=== PATIENT | female | born 1970 | race Two or more races ===

== ENCOUNTER → 2020-01-23 09:30 | Outpatient (BNVA) | payer MEDICARE, MEDICAID, SELFPAY | PROVIDERS: PCP Physician Assistant; Referring Provider Physician Assistant; Visit Provider Anesthesiology | DX: M51.36 Other intervertebral disc degeneration, lumbar region (principal); M47.816 Spondylosis without myelopathy or radiculopathy, lumbar region | CPT/HCPCS: 99213 ==

== ENCOUNTER → 2020-05-14 08:12 | Outpatient (BNVA) | payer MEDICARE, MEDICAID, SELFPAY | PROVIDERS: PCP Physician Assistant; Visit Provider Anesthesiology | DX: M51.36 Other intervertebral disc degeneration, lumbar region (principal); M47.816 Spondylosis without myelopathy or radiculopathy, lumbar region; M16.0 Bilateral primary osteoarthritis of hip; M46.1 Sacroiliitis, not elsewhere classified; G89.4 Chronic pain syndrome | CPT/HCPCS: 99212 ==

== ENCOUNTER 2020-06-05 06:03 | Outpatient (REF) | payer MEDICARE, MEDICAID, SELFPAY ==
--- NOTE | ~2020-06-05 | FL_ITS ---
EXAMINATION: XR FLUOROSCOPY WITH IMAGES CLINICAL INFORMATION: Spondylosis with myelopathy/radiculopathy COMPARISON: None. TECHNIQUE: Fluoroscopy performed by Nora Rodriguez NP. Fluoroscopy time: 0.5 minutes DAP: 2.35 Gycm2 Images: 2 FINDINGS: There are 2 images obtained of lumbar spine revealing needle positioned inferior right L3 and L4 pedicles opacifying epidural space and the right neural foramina. Visualized bones are unremarkable. The soft tissues are normal. FL/FL guidance in treatment room IMPRESSION: Fluoroscopy guidance was provided to referring physician for lateral left epidural steroid injection at L3 and L4 vertebra.
== END 2020-06-05 06:04 | disposition home or self-care (01) ==
LOC: HO.RADIR 06:03
PROVIDERS: Visit Provider Anesthesiology
DX: M47.816 Spondylosis without myelopathy or radiculopathy, lumbar region (principal); M51.36 Other intervertebral disc degeneration, lumbar region; G89.4 Chronic pain syndrome; M16.0 Bilateral primary osteoarthritis of hip; M46.1 Sacroiliitis, not elsewhere classified
CPT/HCPCS: 64483; 64484; J3300; Q9967

== ENCOUNTER → 2020-06-11 09:18 | Outpatient (BNVA) | payer MEDICARE, MEDICAID, SELFPAY | PROVIDERS: PCP Physician Assistant; Visit Provider Anesthesiology | DX: M51.36 Other intervertebral disc degeneration, lumbar region (principal); M47.816 Spondylosis without myelopathy or radiculopathy, lumbar region; G89.4 Chronic pain syndrome; M16.0 Bilateral primary osteoarthritis of hip; M46.1 Sacroiliitis, not elsewhere classified | CPT/HCPCS: 99212 ==

== ENCOUNTER → 2020-07-09 10:02 | Outpatient (BNVA) | payer MEDICARE, MEDICAID, SELFPAY | PROVIDERS: PCP Physician Assistant; Visit Provider Anesthesiology | DX: M47.816 Spondylosis without myelopathy or radiculopathy, lumbar region (principal); M51.36 Other intervertebral disc degeneration, lumbar region; M16.0 Bilateral primary osteoarthritis of hip; M46.1 Sacroiliitis, not elsewhere classified; G89.4 Chronic pain syndrome | CPT/HCPCS: Q3014 ==

== ENCOUNTER 2020-11-06 06:08 | Outpatient (REF) | payer MEDICARE, MEDICAID, SELFPAY ==
--- NOTE | ~2020-11-06 | FL_ITS ---
EXAMINATION: XR FLUOROSCOPY WITH IMAGES CLINICAL INFORMATION: M47.816 - Spondylosis without myelopathy or radiculopathy COMPARISON: MRI lumbar spine 04/23/2019 TECHNIQUE: Fluoroscopy performed by Nora Rodriguez NP. Fluoroscopy time: 0.5 minutes DAP: 6.23 Gycm2 Images: 5 FINDINGS: There are spinal needles overlying the outer left L3 and L4 neural foramen. There is contrast seen in the respective nerve sheaths. Some early transforaminal epidural extension is suggested. No visible vascular communication. FL/FL guidance in treatment room IMPRESSION: Fluoroscopy for pain management procedures.
[2020-11-10 12:01] LABS: Levetiracetam Keppra 7.4 mcg/mL (12.0-46.0)
== END 2020-11-06 06:09 | disposition home or self-care (01) ==
LOC: HO.RADIR 06:08
PROVIDERS: Psychiatry & Neurology Neurology; Visit Provider Anesthesiology
DX: R56.9 Unspecified convulsions (principal); M51.36 Other intervertebral disc degeneration, lumbar region; M47.816 Spondylosis without myelopathy or radiculopathy, lumbar region; G89.4 Chronic pain syndrome; M16.0 Bilateral primary osteoarthritis of hip; M46.1 Sacroiliitis, not elsewhere classified; Z79.899 Other long term (current) drug therapy
CPT/HCPCS: 36415; 64483; 64484; 80177; J3300; Q9967

== ENCOUNTER → 2020-12-05 08:38 | Outpatient (BNVA) | payer MEDICARE, MEDICAID, SELFPAY | PROVIDERS: PCP Physician Assistant; Visit Provider Anesthesiology | DX: M51.36 Other intervertebral disc degeneration, lumbar region (principal); M47.816 Spondylosis without myelopathy or radiculopathy, lumbar region; M46.1 Sacroiliitis, not elsewhere classified; M16.0 Bilateral primary osteoarthritis of hip; G89.4 Chronic pain syndrome; Z79.899 Other long term (current) drug therapy | CPT/HCPCS: 99212 ==

== ENCOUNTER 2021-04-23 06:41 | Outpatient (REF) | payer MEDICARE, MEDICAID, SELFPAY ==
--- NOTE | ~2021-04-23 | FL_ITS ---
EXAMINATION: XR FLUOROSCOPY WITH IMAGES CLINICAL INFORMATION: M51.36 - Other intervertebral disc degeneration, lumbar COMPARISON: Fluoroscopic spot views 11/06/2020 TECHNIQUE: Fluoroscopy performed by Dr. Lester James. Fluoroscopy time: 0.5 minutes DAP: 4.88 Gycm2 Images: 2 FINDINGS: There are spinal needles overlying the outer left neural foramen at L3 and L4. There is contrast seen in the respective nerve sheaths. Some early transforaminal epidural extension is suggested. No visible vascular communication. FL/FL guidance in treatment room IMPRESSION: Fluoroscopy for pain management procedures.
== END 2021-04-23 06:42 | disposition home or self-care (01) ==
LOC: HO.RADIR 06:41
PROVIDERS: Visit Provider Anesthesiology
DX: M51.36 Other intervertebral disc degeneration, lumbar region (principal); M47.816 Spondylosis without myelopathy or radiculopathy, lumbar region; G89.4 Chronic pain syndrome; M16.0 Bilateral primary osteoarthritis of hip; M46.1 Sacroiliitis, not elsewhere classified
CPT/HCPCS: 64483; 64484; J3300; Q9967

== ENCOUNTER → 2021-05-22 09:33 | Outpatient (BNVA) | payer MEDICARE, MEDICAID, SELFPAY | PROVIDERS: PCP Physician Assistant; Visit Provider Anesthesiology | DX: Z13.89 Encounter for screening for other disorder (principal) | CPT/HCPCS: Q3014 ==

== ENCOUNTER 2021-10-29 06:04 | Outpatient (REF) | payer MEDICARE, SELFPAY ==
--- NOTE | ~2021-10-29 | FL_ITS ---
EXAMINATION: XR FLUOROSCOPY WITH IMAGES CLINICAL INFORMATION: Left-sided lumbar injection. Spondylosis. COMPARISON: 04/23/2021 TECHNIQUE: Fluoroscopy performed by Dr. Lester James. Fluoroscopy time: 0.3 minutes. Cumulative Dose: 9.33 mGy. DAP: 2.54 Gy-cm2. Images: 2. FINDINGS: A radiopaque needle projects over the left L3 and L4 vertebral bodies laterally, possibly foraminal. Contrast extends along the neural foramen. FL/FL guidance in treatment room IMPRESSION: Fluoroscopic guidance for neuroforaminal injections at L3 and L4 on the left. Please refer to procedural report for further information.
== END 2021-10-29 06:05 | disposition home or self-care (01) ==
LOC: HO.RADIR 06:04
PROVIDERS: Visit Provider Anesthesiology
DX: M47.816 Spondylosis without myelopathy or radiculopathy, lumbar region (principal); M51.36 Other intervertebral disc degeneration, lumbar region; G89.4 Chronic pain syndrome; M16.0 Bilateral primary osteoarthritis of hip; M46.1 Sacroiliitis, not elsewhere classified; M51.16 Intervertebral disc disorders with radiculopathy, lumbar region
CPT/HCPCS: 64483; 64484; J3300

== ENCOUNTER → 2021-12-11 09:59 | Outpatient (BNVA) | payer MEDICARE, MEDICAID, SELFPAY | PROVIDERS: PCP Physician Assistant; Visit Provider Anesthesiology | DX: M51.36 Other intervertebral disc degeneration, lumbar region (principal); M47.816 Spondylosis without myelopathy or radiculopathy, lumbar region; M16.0 Bilateral primary osteoarthritis of hip; M46.1 Sacroiliitis, not elsewhere classified; G89.4 Chronic pain syndrome | CPT/HCPCS: 99212 ==

== ENCOUNTER 2022-02-04 05:52 | Outpatient (REF) | payer MEDICARE, MEDICAID, SELFPAY ==
--- NOTE | ~2022-02-04 | FL_ITS ---
EXAMINATION: XR FLUOROSCOPY WITH IMAGES CLINICAL INFORMATION: M51.16 - Intervertebral disc disorders with radiculopathy, lumbar region COMPARISON: MR lumbar spine 04/23/2019 TECHNIQUE: Fluoroscopy supervised by Dr. Lester James. Fluoroscopy time: 0.5 minutes. Cumulative Dose: 6.61 mGy. DAP: 1.80 Gy-cm2. Images: 2. FINDINGS: There is a spinal needle overlying the outer left L3 neural foramen. There is contrast seen in the respective nerve sheath along with transforaminal epidural extension. No visible vascular communication. FL/FL guidance in treatment room IMPRESSION: Fluoroscopy for pain management procedures.
== END 2022-02-04 05:53 | disposition home or self-care (01) ==
LOC: CF 05:52
PROVIDERS: Visit Provider Anesthesiology
DX: M51.36 Other intervertebral disc degeneration, lumbar region (principal); M47.26 Other spondylosis with radiculopathy, lumbar region; M51.16 Intervertebral disc disorders with radiculopathy, lumbar region; M16.0 Bilateral primary osteoarthritis of hip; M46.1 Sacroiliitis, not elsewhere classified; G89.4 Chronic pain syndrome
CPT/HCPCS: 64493; 64494; J3300; Q9965

== ENCOUNTER → 2022-03-10 09:24 | Outpatient (BNVA) | payer MEDICARE, MEDICAID, SELFPAY | PROVIDERS: PCP Physician Assistant; Visit Provider Anesthesiology | DX: M51.36 Other intervertebral disc degeneration, lumbar region (principal); M47.816 Spondylosis without myelopathy or radiculopathy, lumbar region; M16.0 Bilateral primary osteoarthritis of hip; M46.1 Sacroiliitis, not elsewhere classified; G89.4 Chronic pain syndrome | CPT/HCPCS: 99212 ==

== ENCOUNTER → 2022-08-04 10:18 | Outpatient (BNVA) | payer MEDICARE, MEDICAID, SELFPAY | PROVIDERS: PCP Physician Assistant; Visit Provider Anesthesiology | DX: M51.36 Other intervertebral disc degeneration, lumbar region (principal); M47.816 Spondylosis without myelopathy or radiculopathy, lumbar region; M16.0 Bilateral primary osteoarthritis of hip; M46.1 Sacroiliitis, not elsewhere classified; M51.16 Intervertebral disc disorders with radiculopathy, lumbar region; G89.4 Chronic pain syndrome | CPT/HCPCS: 99212 ==

== ENCOUNTER 2022-08-26 06:11 | Outpatient (REF) | payer MEDICARE, MEDICAID, SELFPAY ==
--- NOTE | ~2022-08-26 | FL_ITS ---
EXAMINATION: XR FLUOROSCOPY WITH IMAGES CLINICAL INFORMATION: Intervertebral disc disorders with radiculopathy COMPARISON: None available. TECHNIQUE: Fluoroscopy Supervised By: Dr. Chidi Manning. Fluoroscopy Time: 0.3 minutes. Cumulative Dose: 10.5 mGy. DAP: 2.86 Gycm2. Images: 2. FINDINGS: (2022 (1) Position inferior to left L3-L4 pedicle and contrast opacifying the epidural space at these disc levels. Visualized bones and discs are unremarkable. FL/FL guidance in treatment room IMPRESSION: Fluoroscopy was provided to referring physician for pain management.
== END 2022-08-26 06:12 | disposition home or self-care (01) ==
LOC: CF 06:11
PROVIDERS: Visit Provider Anesthesiology
DX: G89.4 Chronic pain syndrome (principal); M51.16 Intervertebral disc disorders with radiculopathy, lumbar region; M51.36 Other intervertebral disc degeneration, lumbar region; M47.816 Spondylosis without myelopathy or radiculopathy, lumbar region; M16.0 Bilateral primary osteoarthritis of hip; M46.1 Sacroiliitis, not elsewhere classified
CPT/HCPCS: 64483; 64484; J3301

== ENCOUNTER → 2022-09-22 12:44 | Outpatient (BNVA) | payer MEDICARE, MEDICAID, SELFPAY | PROVIDERS: PCP Physician Assistant; Visit Provider Anesthesiology | DX: M51.36 Other intervertebral disc degeneration, lumbar region (principal); M47.816 Spondylosis without myelopathy or radiculopathy, lumbar region; M16.0 Bilateral primary osteoarthritis of hip; M51.16 Intervertebral disc disorders with radiculopathy, lumbar region; M46.1 Sacroiliitis, not elsewhere classified; G89.4 Chronic pain syndrome | CPT/HCPCS: 99212 ==

== ENCOUNTER 2023-01-13 06:02 | Outpatient (REF) | payer MEDICARE, MEDICAID, SELFPAY ==
--- NOTE | ~2023-01-13 | FL_ITS ---
EXAMINATION: XR FLUOROSCOPY WITH IMAGES CLINICAL INFORMATION: Intervertebral disc disorders with radiculopathy, lumbar region. COMPARISON: None available. TECHNIQUE: Fluoroscopy Supervised By: Dr. Lester James. Fluoroscopy Time: 0.3 minutes. Cumulative Dose: 7.42 mGy. DAP: 0.128 Gycm2. Images: 2. FINDINGS: Images demonstrate needle placement and contrast injection adjacent to the left L3 and L4 vertebrae FL/FL guidance in treatment room IMPRESSION: Fluoroscopy guidance for pain management procedure
== END 2023-01-13 06:03 | disposition home or self-care (01) ==
LOC: CF 06:02
PROVIDERS: Visit Provider Anesthesiology
DX: M51.16 Intervertebral disc disorders with radiculopathy, lumbar region (principal); M51.36 Other intervertebral disc degeneration, lumbar region; M47.816 Spondylosis without myelopathy or radiculopathy, lumbar region; M16.0 Bilateral primary osteoarthritis of hip; M46 Other inflammatory spondylopathies
CPT/HCPCS: 64483; 64484; J3301; Q9967

== ENCOUNTER 2023-01-13 08:05 | Outpatient (AMB) | payer MEDICARE, MEDICAID, SELFPAY ==
[2023-01-13 08:11] VITALS: BP 122/72; PULSE 79; RESP 16; O2SAT 99; BMI 23.6
--- NOTE | 2023-01-13 08:11 | MHC.OFFVIS ---
Intake Vital Signs 01/13/23 08:11 01/13/23 08:53 Height 5 ft 2 in 5 ft 2 in Weight 129 lb 129 lb BMI 23.6 23.6 BP 122/72 114/62 Blood Pressure Location Lt brachial Rt brachial Position Sitting Sitting Respiration 16 16 Pulse 79 61 Pulse Source Pulse Oximeter Pulse Oximeter Pulse Oximetry (%) 99 99 Oxygen Delivery Method Room Air Room Air Comment Pre-Op post-op Intake Visit Reasons: L L3-L4, L4-L5 TFESI/LOCAL Allergies aspirin Allergy (Unknown, Verified 01/13/23 08:53) upset stomach Alupent Allergy (Unknown, Uncoded 09/22/22 13:08) vomiting bees Allergy (Unknown, Uncoded 09/22/22 13:08) hives strawberries Allergy (Unknown, Uncoded 09/22/22 13:08) hives [facility] Medical History (Updated 01/13/23 @ 10:50 by Lester James MD) Sacroiliitis Osteoarthritis, hip, bilateral Chronic pain syndrome Spondylosis of lumbar region without myelopathy or radiculopathy Disc degeneration, lumbar Physical Exam Vital Signs: Last Vital Signs Pulse 61 01/13/23 08:53 Resp 16 01/13/23 08:53 BP 114/62 01/13/23 08:53 Pulse Ox 99 01/13/23 08:53 Oxygen Delivery Method Room Air 01/13/23 08:53 BMI result Body Mass Index 23.6 Assessment & Plan Assessment & Plan (1) Disc degeneration, lumbar: Code(s): M51.36 - Other intervertebral disc degeneration, lumbar region (2) Spondylosis of lumbar region without myelopathy or radiculopathy: Code(s): M47.816 - Spondylosis without myelopathy or radiculopathy, lumbar region (3) Chronic pain syndrome: Code(s): G89.4 - Chronic pain syndrome (4) Osteoarthritis, hip, bilateral: Code(s): M16.0 - Bilateral primary osteoarthritis of hip (5) Sacroiliitis: Code(s): M46.1 - Sacroiliitis, not elsewhere classified (6) Displacement of lumbar intervertebral disc with radiculopathy: Code(s): M51.16 - Intervertebral disc disorders with radiculopathy, lumbar region Plan: The patient is in my office today and reports the nature of her pain has changed. She reports now that she feels bilateral pain with radiation down the left as well as down the right LE. She reports intermitted weakness of the RLE. She is asking if we can repeat the MRI of the lumbar spine. She had an MRI long time ago. She had small disc protrusion in the past at L4- L5 and it might be that the protrusion now increased in size. I will schedule her for the lumbar spine MRI. (7) Radiculopathy, lumbar region: Code(s): M54.16 - Radiculopathy, lumbar region Plan Transforaminal epidural steroid injection L3-L4 L4-5 on the left. THE PATIENT CAME TO THE OPERATING ROOM AFTER OBTAINING INFORMED CONSENT. THE RISKS OF THE PROCEDURE WERE DELINEATED THE RISK OF BLEEDING INFECTION PERIPHERAL NERVE DAMAGE EPIDURAL HEMATOMA EPIDURAL ABSCESS AND OTHER UNSPECIFIED RISKS. THE PATIENT WAS POSITIONED PRONE ON THE OPERATING TABLE [employer] MONITORS WERE APPLIED, PATIENT WAS NOT SEDATED. TIME-OUT WAS OBTAINED DELINEATING CORRECT SIDE AND SITE OF THE PROCEDURE, PATIENT NAME AND DATE OF , NEED OF THE ANTIBIOTIC, RISK OF FIRE. The PATIENT PARTICIPATED IN THE TIME OUT PROCEDURE. LUMBAR AREA OF THE PATIENT WAS PREPPED WITH CHLORAPREP AND DRAPED WITH STERILE DRAPES, STERILELY DRAPED C-ARM WAS BROUGHT OVER THE OPERATING FIELD AND SQ PICTURE OF L3 VERTEBRA WAS DELINEATED ON THE SCREEN. C-ARM WAS TILTED 20? TO THE left SIDE AND PICTURE OF THE left PEDICLE L3 VERTEBRA WAS OBTAINED ON THE SCREEN. 3 MM BELOW THE LOWEST POINT OF THE PEDICLE PROJECTION TO THE SKIN WAS CHOSEN A STARTING POINT OF THE INJECTION. 22 GAUGE 5 IN SPINAL NEEDLE WAS INSERTED THROUGH THE SKIN AND STARTED TO ADVANCE TO THE FORAMINA IN ANTERIOR POSTERIOR, OBLIQUE AND LATERAL VIEWS IN TUNNEL VISION FASHION. WHEN ON LATERAL VIEW THE NEEDLE ENTERED THE MOST POSTERIOR AND SUPERIOR PORTION OF THE FORAMINA INJECTION OF THE CONTRAST PERFORMED DELINEATING ANTERIOR EPIDURAL SPREAD OF THE CONTRAST. AFTER THAT TREATMENT SOLUTION CONTAINING 5 ML OF PRESERVATIVE-FREE LIDOCAINE 1% MIXED WITH KENALOG 40 MG WAS INJECTED INTO THE NEEDLE. UPON COMPLETION OF THE INJECTION THE NEEDLE WAS REMOVED AND STERILE DRESSING WAS APPLIED. THERE INJECTION WAS REPEATED AT THE LEVEL L4-L5 ON THE LEFT IN THE SAME VERY FASHION ABOVE. PATIENT TOLERATED PROCEDURE WELL SHE WAS AWAKEN TAKEN OUTSIDE OF THE OPERATING ROOM TO PACU WHERE SHE RECOVERED UNEVENTFULLY. SHE WENT HOME WITHOUT IMMEDIATE COMPLICATIONS. Orders: Orders FL guidance in treatment room Today M51.16 - Intervertebral disc disorders with radiculopathy, lumbar region Nelli Moran, [employer] [place], TECHNICAL ADMINISTRATOR MR lumbar spine wo con Today M51.36 - Other intervertebral disc degeneration, lumbar region Lester James MD Coding Level of Care Code Procedure Only Diagnoses Disc degeneration, lumbar M51.36 Spondylosis of lumbar region without myelopathy or radiculopathy M47.816 Chronic pain syndrome G89.4 Osteoarthritis, hip, bilateral M16.0 Sacroiliitis M46.1 Displacement of lumbar intervertebral disc with radiculopathy M51.16 Radiculopathy, lumbar region M54.16
[2023-01-13 08:53] VITALS: BP 114/62; PULSE 61; RESP 16; O2SAT 99; BMI 23.6
== END 2023-01-13 09:03 | disposition home or self-care (01) ==
LOC: HO.PMCPRC 08:05
PROVIDERS: PCP Physician Assistant; Visit Provider Anesthesiology
DX: M54.16 Radiculopathy, lumbar region (principal); M51.36 Other intervertebral disc degeneration, lumbar region; M47.816 Spondylosis without myelopathy or radiculopathy, lumbar region; M16.0 Bilateral primary osteoarthritis of hip; G89.4 Chronic pain syndrome; M46.1 Sacroiliitis, not elsewhere classified; M51.16 Intervertebral disc disorders with radiculopathy, lumbar region
CPT/HCPCS: 64483; 64484

== ENCOUNTER 2023-01-29 18:59 | Outpatient (REF) | payer MEDICARE, MEDICAID, SELFPAY ==
--- NOTE | ~2023-01-29 | MR_ITS ---
EXAMINATION: MR LUMBAR SPINE WITHOUT CONTRAST CLINICAL INFORMATION: Low back pain COMPARISON: MRI lumbar spine 04/23/2019 TECHNIQUE: MRI of the lumbar spine was obtained using routine sequences without contrast. FINDINGS: Normal lumbar lordosis is preserved. Stable trace retrolisthesis at L5-S1 and trace anterolisthesis at L4-L5. Vertebral body heights are maintained. There is no suspicious osseous lesion. Multilevel disc desiccation with minimal L5-S1 disc height loss. Level by level detail as follows: L1-L2: No spinal canal or neural foraminal stenosis. L2-L3: Shallow annular disc bulge with decreased size of left foraminal/lateral disc protrusion and redemonstrated associated annular fissure. Mild bilateral facet arthrosis. No spinal canal or right neural foraminal stenosis. Decreased mild left neural foraminal stenosis without residual mass effect along the exiting/extraforaminal left L2 nerve root. L3-L4: Shallow annular disc bulge with decreased size of left foraminal/lateral disc protrusion and increased conspicuity of associated annular fissure in this region. Mild bilateral facet arthrosis. No spinal canal or right neural foraminal stenosis. Decreased mild left neural foraminal stenosis. L4-L5: Posterior disc uncovering/pseudodisc bulge with advanced bilateral facet arthrosis. No spinal canal stenosis. Redemonstrated abutment of the traversing L5 nerve roots in the subarticular zones. Unchanged mild bilateral neural foraminal encroachment. L5-S1: Annular disc bulge with redemonstrated paracentral disc protrusion with redemonstrated annular fissure. Bilateral facet arthrosis. No spinal canal stenosis. Stable mild bilateral neural foraminal stenosis. The conus medullaris terminates at the level of L1. The distal spinal cord is normal in appearance. . No epidural fluid collection, hematoma, or mass. No significant abnormalities of the paraspinal musculature. 2.2 cm left adnexal cystic lesion. Findings are overwhelmingly likely to represent a benign functional cyst and no follow-up imaging recommended. The abdominal aorta is of normal contour and caliber. MR/MR lumbar spine wo con IMPRESSION: Interval decrease in size of left foraminal/lateral disc protrusions at L2-L3 and L3-L4 with decreased left neural foraminal stenosis at the levels. Otherwise stable multilevel lumbar spondylosis without high-grade spinal canal stenosis. Mild multilevel neural foraminal narrowing. Several annular fissures are redemonstrated. Stable slight anterolisthesis at L4-L5 related to advanced bilateral facet arthropathy.
== END 2023-01-29 19:00 | disposition home or self-care (01) ==
LOC: HO.MRI 18:59
PROVIDERS: PCP Family Medicine; Visit Provider Anesthesiology
DX: M51.36 Other intervertebral disc degeneration, lumbar region (principal)
CPT/HCPCS: 72148

== ENCOUNTER 2023-02-16 10:08 | Outpatient (AMB) | payer MEDICARE, MEDICAID, SELFPAY ==
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
[2023-02-16 10:18] VITALS: BP 134/70; PULSE 81; RESP 16; O2SAT 98; BMI 25.1
== END 2023-02-16 10:34 | disposition home or self-care (01) ==
PROVIDERS: PCP Physician Assistant; Visit Provider Anesthesiology
DX: M51.36 Other intervertebral disc degeneration, lumbar region (principal); M47.816 Spondylosis without myelopathy or radiculopathy, lumbar region; G89.4 Chronic pain syndrome; M16.0 Bilateral primary osteoarthritis of hip; M46.1 Sacroiliitis, not elsewhere classified; M51.16 Intervertebral disc disorders with radiculopathy, lumbar region; M54.16 Radiculopathy, lumbar region
CPT/HCPCS: 99213

== ENCOUNTER → 2023-02-16 10:08 | Outpatient (BNVA) | payer MEDICARE, MEDICAID, SELFPAY | PROVIDERS: PCP Physician Assistant; Visit Provider Anesthesiology | DX: M51.36 Other intervertebral disc degeneration, lumbar region (principal); M47.816 Spondylosis without myelopathy or radiculopathy, lumbar region; M16.0 Bilateral primary osteoarthritis of hip; M46.1 Sacroiliitis, not elsewhere classified; M51.16 Intervertebral disc disorders with radiculopathy, lumbar region; M54.16 Radiculopathy, lumbar region; G89.4 Chronic pain syndrome | CPT/HCPCS: 99212 ==

== ENCOUNTER 2023-06-30 06:14 | Outpatient (REF) | payer MEDICARE, MEDICAID, SELFPAY ==
--- NOTE | ~2023-06-30 | FL_ITS ---
EXAMINATION: XR FLUOROSCOPY WITH IMAGES CLINICAL INFORMATION: Lumbar radiculopathy COMPARISON: None available. TECHNIQUE: Fluoroscopy Supervised By: Dr. Lester James. Fluoroscopy Time: 0.4 minutes. Cumulative Dose: 9.8 mGy. DAP: 0.171 Gycm2. Images: 2. FINDINGS: Fluoroscopic imaging guidance was utilized for procedure. 2 images were saved and are available for review. These images show needle position of the left L3-L4 and L4-L5 levels with contrast injection. FL/FL guidance in treatment room IMPRESSION: Fluoroscopic imaging procedure. For further detail regarding procedure and findings please refer to the procedure report.
== END 2023-06-30 06:15 | disposition home or self-care (01) ==
LOC: CF 06:14
PROVIDERS: Visit Provider Anesthesiology
DX: M51.36 Other intervertebral disc degeneration, lumbar region (principal); M47.26 Other spondylosis with radiculopathy, lumbar region; G89.4 Chronic pain syndrome; M16.0 Bilateral primary osteoarthritis of hip; M46.1 Sacroiliitis, not elsewhere classified; M51.16 Intervertebral disc disorders with radiculopathy, lumbar region
CPT/HCPCS: 64483; 64484; J3301; Q9967

== ENCOUNTER 2023-06-30 12:54 | Outpatient (AMB) | payer MEDICARE, MEDICAID, SELFPAY ==
--- NOTE | 2023-06-30 13:20 | A.OFFVIS_ITS ---
Intake Vital Signs 06/30/23 13:44 06/30/23 13:44 Height 5 ft 2 in Weight 137 lb BMI 25.1 BP 128/82 122/80 Blood Pressure Location Lt brachial Lt brachial Position Sitting Sitting Respiration 14 16 Pulse 88 88 Pulse Source Pulse Oximeter Pulse Oximeter Pulse Oximetry (%) 99 96 Oxygen Delivery Method Room Air Room Air Comment Pre-Op Post-Op Intake Visit Reasons: LEFT L3, L4 AND L4, L5 TFESI Allergies aspirin Allergy (Unknown, Verified 02/16/23 10:19) upset stomach Alupent Allergy (Unknown, Uncoded 09/22/22 13:08) vomiting bees Allergy (Unknown, Uncoded 09/22/22 13:08) hives strawberries Allergy (Unknown, Uncoded 09/22/22 13:08) hives [facility], [facility] Medical History (Updated 01/13/23 @ 10:50 by Lester James MD) Sacroiliitis Osteoarthritis, hip, bilateral Chronic pain syndrome Spondylosis of lumbar region without myelopathy or radiculopathy Disc degeneration, lumbar Physical Exam Vital Signs: Last Vital Signs Pulse 88 06/30/23 13:44 Resp 16 06/30/23 13:44 BP 122/80 06/30/23 13:44 Pulse Ox 96 06/30/23 13:44 Oxygen Delivery Method Room Air 06/30/23 13:44 BMI result Body Mass Index 25.1 Assessment & Plan Assessment & Plan (1) Disc degeneration, lumbar: Code(s): M51.36 - Other intervertebral disc degeneration, lumbar region (2) Spondylosis of lumbar region without myelopathy or radiculopathy: Code(s): M47.816 - Spondylosis without myelopathy or radiculopathy, lumbar region (3) Chronic pain syndrome: Code(s): G89.4 - Chronic pain syndrome (4) Osteoarthritis, hip, bilateral: Code(s): M16.0 - Bilateral primary osteoarthritis of hip (5) Sacroiliitis: Code(s): M46.1 - Sacroiliitis, not elsewhere classified (6) Displacement of lumbar intervertebral disc with radiculopathy: Code(s): M51.16 - Intervertebral disc disorders with radiculopathy, lumbar region (7) Radiculopathy, lumbar region: Code(s): M54.16 - Radiculopathy, lumbar region Plan Transforaminal epidural steroid injection L3-L4 L4-5 on the left. THE PATIENT CAME TO THE OPERATING ROOM AFTER OBTAINING INFORMED CONSENT. THE RISKS OF THE PROCEDURE WERE DELINEATED THE RISK OF BLEEDING INFECTION PERIPHERAL NERVE DAMAGE EPIDURAL HEMATOMA EPIDURAL ABSCESS AND OTHER UNSPECIFIED RISKS. THE PATIENT WAS POSITIONED PRONE ON THE OPERATING TABLE [employer] MONITORS WERE APPLIED, PATIENT WAS NOT SEDATED. TIME-OUT WAS OBTAINED DELINEATING CORRECT SIDE AND SITE OF THE PROCEDURE, PATIENT NAME AND DATE OF , NEED OF THE ANTIBIOTIC, RISK OF FIRE. The PATIENT PARTICIPATED IN THE TIME OUT PROCEDURE. LUMBAR AREA OF THE PATIENT WAS PREPPED WITH CHLORAPREP AND DRAPED WITH STERILE DRAPES, STERILELY DRAPED C-ARM WAS BROUGHT OVER THE OPERATING FIELD AND SQ PICTURE OF L3 VERTEBRA WAS DELINEATED ON THE SCREEN. C-ARM WAS TILTED 20? TO THE left SIDE AND PICTURE OF THE left PEDICLE L3 VERTEBRA WAS OBTAINED ON THE SCREEN. 3 MM BELOW THE LOWEST POINT OF THE PEDICLE PROJECTION TO THE SKIN WAS CHOSEN A STARTING POINT OF THE INJECTION. 22 GAUGE 5 IN SPINAL NEEDLE WAS INSERTED THROUGH THE SKIN AND STARTED TO ADVANCE TO THE FORAMINA IN ANTERIOR POSTERIOR, OBLIQUE AND LATERAL VIEWS IN TUNNEL VISION FASHION. WHEN ON LATERAL VIEW THE NEEDLE ENTERED THE MOST POSTERIOR AND SUPERIOR PORTION OF THE FORAMINA INJECTION OF THE CONTRAST PERFORMED DELINEATING ANTERIOR EPIDURAL SPREAD OF THE CONTRAST. AFTER THAT TREATMENT SOLUTION CONTAINING 5 ML OF PRESERVATIVE-FREE LIDOCAINE 1% MIXED WITH KENALOG 40 MG WAS INJECTED INTO THE NEEDLE. UPON COMPLETION OF THE INJECTION THE NEEDLE WAS REMOVED AND STERILE DRESSING WAS APPLIED. THERE INJECTION WAS REPEATED AT THE LEVEL L4-L5 ON THE LEFT IN THE SAME VERY FASHION ABOVE. PATIENT TOLERATED PROCEDURE WELL SHE WAS AWAKEN TAKEN OUTSIDE OF THE OPERATING ROOM TO PACU WHERE SHE RECOVERED UNEVENTFULLY. SHE WENT HOME WITHOUT IMMEDIATE COMPLICATIONS. Orders: Orders FL guidance in treatment room Today M54.16 - Radiculopathy, lumbar region Coding Level of Care Code Procedure Only Diagnoses Disc degeneration, lumbar M51.36 Spondylosis of lumbar region without myelopathy or radiculopathy M47.816 Chronic pain syndrome G89.4 Osteoarthritis, hip, bilateral M16.0 Sacroiliitis M46.1 Displacement of lumbar intervertebral disc with radiculopathy M51.16 Radiculopathy, lumbar region M54.16
[2023-06-30 13:44] VITALS: BP 122/80; BP 128/82; PULSE 88; RESP 14; RESP 16; O2SAT 96; O2SAT 99; BMI 25.1
== END 2023-06-30 13:49 | disposition home or self-care (01) ==
LOC: HO.PMCPRC 12:54
PROVIDERS: PCP Physician Assistant; Visit Provider Anesthesiology
DX: M54.16 Radiculopathy, lumbar region (principal)
CPT/HCPCS: 64483; 64484

== ENCOUNTER 2023-08-05 12:48 | Outpatient (AMB) | payer MEDICARE, MEDICAID, SELFPAY ==
[2023-08-05 13:13] VITALS: BP 112/66; PULSE 92; RESP 16; O2SAT 95; BMI 26.4
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
== END 2023-08-05 14:04 | disposition home or self-care (01) ==
PROVIDERS: PCP Physician Assistant; Visit Provider Anesthesiology
DX: M51.36 Other intervertebral disc degeneration, lumbar region (principal); M47.816 Spondylosis without myelopathy or radiculopathy, lumbar region; G89.4 Chronic pain syndrome; M16.0 Bilateral primary osteoarthritis of hip; M46.1 Sacroiliitis, not elsewhere classified; M51.16 Intervertebral disc disorders with radiculopathy, lumbar region; M54.16 Radiculopathy, lumbar region
CPT/HCPCS: 99213

== ENCOUNTER → 2023-08-05 12:48 | Outpatient (BNVA) | payer MEDICARE, MEDICAID, SELFPAY | PROVIDERS: PCP Physician Assistant; Visit Provider Anesthesiology | DX: M51.36 Other intervertebral disc degeneration, lumbar region (principal); M47.26 Other spondylosis with radiculopathy, lumbar region; G89.4 Chronic pain syndrome; M16.0 Bilateral primary osteoarthritis of hip; M46.1 Sacroiliitis, not elsewhere classified; M51.16 Intervertebral disc disorders with radiculopathy, lumbar region | CPT/HCPCS: 99212 ==

== ENCOUNTER 2023-09-15 06:17 | Outpatient (REF) | payer MEDICARE, MEDICAID, SELFPAY ==
--- NOTE | ~2023-09-15 | FL_ITS ---
EXAMINATION: XR FLUOROSCOPY WITH IMAGES CLINICAL INFORMATION: Lumbar spondylosis COMPARISON: None available. TECHNIQUE: Fluoroscopy Supervised By: Dr. Lester James. Fluoroscopy Time: 0.3 minutes. Cumulative Dose: 3.68 mGy. DAP: 0.0640 Gycm2. Images: 8. FINDINGS: Intraoperative fluoroscopy and spot films were performed during a procedure in the OR. Transforaminal epidural needles are seen at what appears to be four contiguous locations on the left, likely L3-S1. Contrast media is seen around the needle tips. Please correlate with Dr. Lester James's report for complete details. FL/FL guidance in treatment room IMPRESSION: Intraoperative fluoroscopy and spot films were obtained. Please see Dr. Lester James's report for complete details.
== END 2023-09-15 06:18 | disposition home or self-care (01) ==
LOC: CF 06:17
PROVIDERS: Visit Provider Anesthesiology
DX: M47.816 Spondylosis without myelopathy or radiculopathy, lumbar region (principal); M51.36 Other intervertebral disc degeneration, lumbar region; G89.4 Chronic pain syndrome; M16.0 Bilateral primary osteoarthritis of hip; M46.1 Sacroiliitis, not elsewhere classified; M51.16 Intervertebral disc disorders with radiculopathy, lumbar region
CPT/HCPCS: 64493; 64494; J2795; Q9967

== ENCOUNTER 2023-09-15 10:54 | Outpatient (AMB) | payer MEDICARE, MEDICAID, SELFPAY ==
--- NOTE | 2023-09-15 10:56 | A.OFFVIS_ITS ---
Vital Signs 09/15/23 11:58 09/15/23 11:59 Height 5 ft 2 in Weight 144 lb BMI 26.3 BP 126/80 126/80 Blood Pressure Location Lt brachial Lt brachial Position Sitting Respiration 18 18 Pulse 74 74 Pulse Source Pulse Oximeter Pulse Oximeter Pulse Oximetry (%) 95 95 Oxygen Delivery Method Room Air Room Air Comment Pre-Op Post-Op Intake Visit Reasons: LEFT DIAGNOSTIC L2, L3, L4, DRL5 MBB Allergies aspirin Allergy (Unknown, Verified 08/05/23 13:15) upset stomach Alupent Allergy (Unknown, Uncoded 09/22/22 13:08) vomiting bees Allergy (Unknown, Uncoded 09/22/22 13:08) hives strawberries Allergy (Unknown, Uncoded 09/22/22 13:08) hives [facility] Medical History (Updated 01/13/23 @ 10:50 by Lester James MD) Sacroiliitis Osteoarthritis, hip, bilateral Chronic pain syndrome Spondylosis of lumbar region without myelopathy or radiculopathy Disc degeneration, lumbar Physical Exam Vital Signs: Last Vital Signs Pulse 74 09/15/23 11:59 Resp 18 09/15/23 11:59 BP 126/80 09/15/23 11:59 Pulse Ox 95 09/15/23 11:59 Oxygen Delivery Method Room Air 09/15/23 11:59 BMI result Body Mass Index 26.3 Assessment & Plan Assessment & Plan (1) Disc degeneration, lumbar: Code(s): M51.36 - Other intervertebral disc degeneration, lumbar region Category: Medical (2) Spondylosis of lumbar region without myelopathy or radiculopathy: Code(s): M47.816 - Spondylosis without myelopathy or radiculopathy, lumbar region Category: Medical Plan: Diagnostic medial branch block L2 L3,L4 dorsal ramus L5 on the left. ? ?Informed consent was explained to the patient. All questions were explained and? answered.? The patient was taken inside the operating room where she was positioned prone on the operating table. Time-out was performed delineating correct site, side, the nature of the procedure, patient's allergy, . All operating room staff was participating in OR time-out procedure. ? ? The lower back was prepped with ChloraPrep and draped with sterile towels.? C- arm was brought over the operating field and sq picture of L4-, L5 vertebra and S1 AREA were delineated on the screen.? Point of interest were delineated as confluence of superior articular process of L4 and L5 vertebra on the left with corresponding transverse processes as well as confluence of the sacral alae on the left with superior articular process of S1.? The projection of the point of interest to the skin were injected with the small amount of local anesthetic lidocaine 2% 1-1.5 cc.? After that 22 gauge 3.5 inch spinal needle was driven sequentially to the points of interest in tunnel vision fashion. After needles gently contacted the bone at the point of interests the needle was injected with small amount of the contrast.? The injection of the contrast did not demonstrate any intravascular or intrathecal spread of the contrast.? After that injection of the? ropivacaine 0.5%-1cc was performed at each needle location.??after that the needles were removed and Bandaids were applied. ? Upon completion of the injections? needle was? removed and sterile Band-Aids were applied.? The patient tolerated procedure very well. (3) Chronic pain syndrome: Code(s): G89.4 - Chronic pain syndrome Category: Medical (4) Osteoarthritis, hip, bilateral: Code(s): M16.0 - Bilateral primary osteoarthritis of hip Category: Medical (5) Sacroiliitis: Code(s): M46.1 - Sacroiliitis, not elsewhere classified Category: Medical (6) Displacement of lumbar intervertebral disc with radiculopathy: Code(s): M51.16 - Intervertebral disc disorders with radiculopathy, lumbar region Category: Medical (7) Radiculopathy, lumbar region: Code(s): M54.16 - Radiculopathy, lumbar region Category: Medical Plan After a long ran of transforaminal epidural steroid injections which usually helps her for several months (usually between 5 and 6 months each time) she today reported that the transforaminal epidural steroid injection done on 06/28/2023 fail to alleviate her pain. On her MRI there is significant arthritis demonstrated. Loading test and tenderness on palpation of the lumbar spine make me think about spondylosis and facet generated pain. The pain is mostly axial and rarely radiates to the left lower extremity below the level of the knee. I will schedule this patient for diagnostic medial branch block L2-L3 L4 does ramus L5 on the left. I will evaluate this patient after this procedure. Orders: Orders FL guidance in treatment room Today M47.816 - Spondylosis without myelopathy or radiculopathy, lumbar region Coding Level of Care Code Procedure Only Diagnoses Disc degeneration, lumbar M51.36 Spondylosis of lumbar region without myelopathy or radiculopathy M47.816 Chronic pain syndrome G89.4 Osteoarthritis, hip, bilateral M16.0 Sacroiliitis M46.1 Displacement of lumbar intervertebral disc with radiculopathy M51.16 Radiculopathy, lumbar region M54.16
--- OUTSIDE RECORDS SUMMARY | 2023-09-15 10:56 | XMS_ITS | Continuity of Care Document ---
Author Organization [facility] ter Address [address] [place] [id number]- Care Team Providers Care Livestock Rancher Name Role Phone Yissel Byrne MD Primary Care Physician Encounter [facility] Date(s): 04/01/23 - 04/02/[address] [address]- Encounter Diagnosis Chest pain(Final) - 04/02/23 Discharge Disposition: A-D/C AMA Attending Physician: Angelina Moreno MD Admitting Physician: Angelina Moreno MD Referring Physician: Not on Staff, Referring MD Allergies, Adverse Reactions, Alerts Substance Reaction Severity Status aspirin vomiting Active Alupent SHAKE Active Bee Stings hives Active Strawberries hives Active Medications albuterol 90 mcg/inh inhalation aerosol 0 Refills, Maintenance Start Date: 04/19/19 Status: Ordered bismuth subsalicylate 525 mg/15 mL oral suspension 15 mL = 525 mg, By Mouth, 4 times a day, PRN for dyspepsia, # 840 mL, 0 Refills, Maintenance, 02/11/22 17:40:00 EST, Suspension, [facility] #[id number], Partial fill upon patient request if the prescription is for a schedule II opioid drug., 158,... Start Date: 02/11/22 Stop Date: 02/25/22 Status: Ordered Calcium And Vitamin D Combination By Mouth, 0 Refills, Maintenance, 04/19/19 15:08:00 EST Start Date: 04/19/19 Status: Ordered clindamycin 1% topical lotion 1 applicator, Topically, 2 times a day, 0 Refills, Maintenance, 10/11/19 13:56:00 EDT Start Date: 10/11/19 Status: Ordered CombIVENT Inhaler Refills 0, Maintenance, 04/02/23 1:03:00 EST Start Date: 04/02/23 Status: Ordered Duoneb Inhalation Solution Neb, 4 times a day, Refills 0, Maintenance, 04/19/19 15:12:00 EST Start Date: 04/19/19 Status: Ordered famotidine 40 mg oral tablet 1 tablet = 40 mg, By Mouth, Daily at bedtime, # 30 tablet, 5 Refills, Maintenance, 01/31/22 12:27:00 EDT, Tablet, [facility] #[id number], Partial fill upon patient request if the prescription isfor a schedule II opioid drug., 158, cm, 01/13/22 1... Start Date: 01/31/22 Stop Date: 07/30/22 Status: Ordered gabapentin 300 mg oral capsule 300 mg, 1, capsule, By Mouth, 3 times a day, # 270 capsule, Refills 0, Maintenance, 04/02/23 1:01:00 EST, Partial fill upon patient request if the prescription is for a schedule II opioid drug. Start Date: 04/02/23 Status: Ordered ibuprofen 600 mg oral tablet 600 mg, 1, tablet, By Mouth, Every 6 hours, # 40 tablet, Refills 0, Tot. Refills 0, Maintenance, 10/17/19 9:45:00 EDT, Route to Pharmacy Electronically, [facility] #[id number], 158, cm, :37:00 EDT, Height, 67.6, kg, 10/11/19 9:04:00 EDT... Start Date: 10/17/19 Status: Ordered methocarbamol 500 mg oral tablet 2 tablet = 1,000 mg, By Mouth, 4 times a day, 0 Refills, Maintenance, 04/20/19 15:18:00 EST Start Date: 04/20/19 Status: Ordered omeprazole 20 mg oral enteric coated capsule 1 capsule = 20 mg, By Mouth, 2 times a day, # 28 capsule, 0 Refills, Maintenance, 02/11/22 17:43:00EST, EC Capsule, [facility] #[id number], Partial fill upon patient request if the prescriptionis for a schedule II opioid drug., 158, cm, ... Start Date: 02/11/22 Stop Date: 02/25/22 Status: Ordered Protonix 40 mg oral delayed release tablet 1 tablet = 40 mg, By Mouth, Daily, # 30 tablet, 5 Refills, Maintenance, 01/31/22 12:26:00 EDT, EC Tablet, 158, cm, 01/13/22 13:23:00 EDT, Height, 57.9, kg, 01/31/22 10:32:00 EDT, Dry Weight Start Date: 01/31/22 Stop Date: 07/30/22 Status: Ordered QUEtiapine 300 mg oral tablet 1 tablet = 300 mg, By Mouth, Daily at bedtime, # 30 tablet, 0 Refills, Maintenance, 04/19/19 15:10:00 EST, Tablet Start Date: 04/19/19 Status: Ordered rosuvastatin 40 mg oral capsule 1 capsule = 40 mg, By Mouth, Daily, 0 Refills, Maintenance, 04/02/23 0:59:00 EST, Partial fill uponpatient request if the prescription is for a schedule II opioid drug. Start Date: 04/02/23 Status: Ordered Senna S 50 mg-187 mg oral tablet 2 tablet, By Mouth, Daily at bedtime, # 30 tablet, 0 Refills, Maintenance, 10/17/19 9:45:00 EDT, Tablet, [facility] #[id number], 2 tablet By Mouth Daily at bedtime, 158, cm, 10/17/19 8:37:00 EDT, Height, 67.6, kg, 10/11/19 9:04:00 EDT, Dry Weight Start Date: 10/17/19 Status: Ordered SUMAtriptan 6 mg/0.5 mL subcutaneous solution 0.5 mL = 6 mg, Subcutaneous Injection, Daily, PRN as needed for migraine headache, # 2 each, 0 Refills, Maintenance, 10/06/19 15:51:00 EDT, Solution Start Date: 10/06/19 Status: Ordered Symbicort 160mcg/4.5mcg Inhaler 2, puffs, Inhalation, 2 times a day, Refills 0, Maintenance, 04/20/19 15:17:00 EST Start Date: 04/20/19 Status: Ordered Topamax 25 mg oral tablet 2 tablet = 50 mg, By Mouth, Daily, for migraines, # 180 tablet, 0 Refills, Maintenance, 10/06/19 15:52:00 EDT, Tablet Start Date: 10/06/19 Status: Ordered Ventolin 90 mcg Inhaler Inhalation, Every 6 hours, Refills 0, Maintenance, 10/11/19 13:56:00 EDT Start Date: 10/11/19 Status: Ordered VESIcare 5 mg oral tablet 1 tablet = 5 mg, By Mouth, Daily, 0 Refills, Maintenance, 04/19/19 15:11:00 EST Start Date: 04/19/19 Status: Ordered Problem List Condition Confirmation Course Effective Dates Status Health St atus Informant Chronic midline low back pain Confirmed Active COPD (chronic obstructive pulmonary disease) Confirmed Active Cough Confirmed Active Mixed stress and urge urinary incontinence Confirmed Active PTSD (post-traumatic stress disorder) Confirmed Active Seizures Confirmed Active Gait instability Confirmed Active Results Radiology Reports * Exam Date Time Procedure Performing Provider Status 04/01/23 8:04 PM Elbow Min 3 Views Right Saul Norris; Auth (Verified) Notes: (Elbow Min 3 Views Right) Reason For Exam: with Pain;Trauma RESULT: Elbow Min 3 Views Right Elbow Min 3 Views Right, 3 views Hx of Present Illness: Patient having dizziness, CP starting early this AM. Patient has hx of [place] 2 months ago. Patient had positive stress test one month ago. Patient also endorses intermittent nausea.; Reason: Trauma; with Pain; Clinical Question(s): Fracture; Order Comment: @ 18:09 need 20 min for IV + pain meds -[facility] COMPARISON: None. FINDINGS: No fracture or dislocation. No arthritic changes. No joint effusion. IMPRESSION: Normal. WSN: [id number] Ordering Physician: Lawanda Sequeira Dictated By: Johnathan Matthews MD Dictated Date/Time: 04/01/23 10:10 p Reviewed By: Johnathan Matthews MD Signed By: Johnathan Matthews MD Signed Date/Time: 04/01/23 10:10 pm Transcribed By: CHRIS Transcribed Date/Time: 04/01/23 10:10 pm * Exam Date Time Procedure Performing Provider Status 04/01/23 9:[address] Angio Abdomen Hansa Reese; Auth (Verified) Notes: (CT Angio Abdomen) Reason For Exam: Renal artery dissection suspected;Other: RESULT: CT Angio Abdomen EXAMINATION: CT Angio Chest, CT Angio Abdomen INDICATION: Patient having dizziness, CP starting early this AM. Patient has hx of [place] 2 months ago.Patient had positive stress test one month ago. Patient also endorses intermittent nausea.; Reason:Aortic disease, nontraumatic; Clinical Question(s): Aortic Dissection TECHNIQUE: An initial noncontrast CT of the chest was performed. Spiral CTA of the chest and abdomen was performed after rapid IV contrast administration without cardiac gating triggered by an POLLY onthe aorta. Images are formatted in multiple planes using 2-D multiplanar and 3-D maximum intensity projection. Obliqued images through the aortic root were reconstructed. 85 cc of Omnipaque 300 was administered intravenously. Weight-based protocol using automatic tube modulation was used to optimize exposure parameters. COMPARISONS: None. ANGIOGRAPHIC FINDINGS: No aortic dissection or aneurysm. Normal three vessel arch without branch vessel stenosis. Mild atherosclerotic vascular calcifications. Pulmonary arteries are normal in caliber. No evidence of central pulmonary embolism on this study performed without dedicated technique. Trace focus of gas in the pulmonary artery. NON-ANGIOGRAPHIC FINDINGS: Supervisor Of Way View Findings, Lines and Tubes: None. Trachea and Airways: Patent without evidence of tracheal or endobronchial lesion. Lungs and Pleura: Mild dependent atelectasis. No effusion or pneumothorax. Mediastinum and guilherme: No mass or hematoma. No mediastinal or hilar lymphadenopathy. No esophageal abnormality. Normal thyroid. Heart: Heart is normal in size. No pericardial effusion. No coronary arterial calcifications. Chest Wall Soft Tissues: Normal. Diaphragm : No significant abnormality. Liver: Normal. Gallbladder: No CT evidence of gallbladder pathology. Bile ducts: No biliary ductal dilation. Spleen: Normal. Pancreas: Normal. Adrenal glands: Normal. Kidneys and ureters: No hydronephrosis, stones, or suspicious masses. Stomach, small bowel, and large bowel: Visualized stomach and bowel are normal. Peritoneum and retroperitoneum: No ascites or pneumoperitoneum. No omental or mesenteric lesions. Lymph nodes: No enlarged lymph nodes. Abdominal wall: Unremarkable. Bones: No acute abnormality. IMPRESSION: No aortic aneurysm or dissection. I have personally reviewed the images and I agree with this report. WSN: [id number] Ordering Physician: Lawanda Sequeira Dictated By: Ene Larkin DO Dictated Date/Time: 04/01/23 10:46 p Reviewed By: Johnathan Matthews MD Signed By: Johnathan Matthews MD Signed Date/Time: 04/01/23 10:51 pm Transcribed By: CHRIS Transcribed Date/Time: 04/01/23 9:53 pm * Exam Date Time Procedure Performing Provider Status 04/01/23 9:[address] Angio Chest Hansa Reese; Auth ( Verified) Notes: (CT Angio Chest) Reason For Exam: Aortic disease, nontraumatic;Other: RESULT: CT Angio Chest EXAMINATION: CT Angio Chest, CT Angio Abdomen INDICATION: Patient having dizziness, CP starting early this AM. Patient has hx of [place] 2 months ago.Patient had positive stress test one month ago. Patient also endorses intermittent nausea.; Reason:Aortic disease, nontraumatic; Clinical Question(s): Aortic Dissection TECHNIQUE: An initial noncontrast CT of the chest was performed. Spiral CTA of the chest and abdomen was performed after rapid IV contrast administration without cardiac gating triggered by an POLLY onthe aorta. Images are formatted in multiple planes using 2-D multiplanar and 3-D maximum intensity projection. Obliqued images through the aortic root were reconstructed. 85 cc of Omnipaque 300 was administered intravenously. Weight-based protocol using automatic tube modulation was used to optimize exposure parameters. COMPARISONS: None. ANGIOGRAPHIC FINDINGS: No aortic dissection or aneurysm. Normal three vessel arch without branch vessel stenosis. Mild atherosclerotic vascular calcifications. Pulmonary arteries are normal in caliber. No evidence of central pulmonary embolism on this study performed without dedicated technique. Trace focus of gas in the pulmonary artery. NON-ANGIOGRAPHIC FINDINGS: Supervisor Of Way View Findings, Lines and Tubes: None. Trachea and Airways: Patent without evidence of tracheal or endobronchial lesion. Lungs and Pleura: Mild dependent atelectasis. No effusion or pneumothorax. Mediastinum and guilherme: No mass or hematoma. No mediastinal or hilar lymphadenopathy. No esophageal abnormality. Normal thyroid. Heart: Heart is normal in size. No pericardial effusion. No coronary arterial calcifications. Chest Wall Soft Tissues: Normal. Diaphragm : No significant abnormality. Liver: Normal. Gallbladder: No CT evidence of gallbladder pathology. Bile ducts: No biliary ductal dilation. Spleen: Normal. Pancreas: Normal. Adrenal glands: Normal. Kidneys and ureters: No hydronephrosis, stones, or suspicious masses. Stomach, small bowel, and large bowel: Visualized stomach and bowel are normal. Peritoneum and retroperitoneum: No ascites or pneumoperitoneum. No omental or mesenteric lesions. Lymph nodes: No enlarged lymph nodes. Abdominal wall: Unremarkable. Bones: No acute abnormality. IMPRESSION: No aortic aneurysm or dissection. I have personally reviewed the images and I agree with this report. WSN: [id number] Ordering Physician: Lawanda Sequeira Dictated By: Ene Larkin DO Dictated Date/Time: 04/01/23 10:46 p Reviewed By: Johnathan Matthews MD Signed By: Johnathan Matthews MD Signed Date/Time: 04/01/23 10:51 pm Transcribed By: CHRIS Transcribed Date/Time: 04/01/23 9:53 pm * Exam Date Time Procedure Performing Provider Status 04/01/23 8:[address] Cervical Spine W/O Contrast Hansa Carroll; Auth (Verified) Notes: (CT Cervical Spine W/O Contrast) Reason For Exam: Neck trauma, dangerous injury mechanism;Other: RESULT: CT Cervical Spine W/O Contrast CT Head/Brain W/O Contrast, CT Cervical Spine W/O Contrast INDICATION: Hx of Present Illness: Patient having dizziness, CP starting early this AM. Patient hashx of [place] 2 months ago. Patient had positive stress test one month ago. Patient also endorses intermittent nausea.; Reason: Trauma; Clinical Question(s): Hematoma TECHNIQUE: Noncontrast head CT using axial technique was reconstructed in axial and coronal planes.Noncontrast spiral CT through the cervical spine was formatted in 3 planes. Automatic tube modulation was used for the cervical spine and iterative dose reconstruction was used for both the head and cervical spine to optimize scan parameters and image quality. COMPARISON: None. FINDINGS: Supervisor Of Way View Findings, Lines and Tubes: None. BRAIN AND EXTRA-AXIAL SPACES: No parenchymal hemorrhage, midline shift, or mass effect. Joyner-white matter differentiation is wellpreserved. No acute infarct. Ventricles, sulci, and basilar cisterns are normal. No white matter lesions. No subarachnoid hemorrhage. No subdural or epidural collection. CALVARIUM, SKULL BASE, AND SOFT TISSUES: No fractures or suspicious bony lesions. The paranasal sinuses and mastoid air cells are clear. Visualized orbits and globes are intact. The extracranial soft tissues are unremarkable. CERVICAL SPINE: No fracture. No acute osseous abnormalities. Normal alignment. No locked or perched facet. Moderate multilevel degenerative disc space narrowingand end plate irregularity. OTHER BONES: No acute abnormality. CERVICAL SOFT TISSUES AND LUNG APICES: Normal soft tissues. Visualized lung apices are clear. IMPRESSION: No acute abnormality of the head or cervical spine. WSN: [id number] Ordering Physician: Lawanda Sequeira Dictated By: Johnathan Matthews MD Dictated Date/Time: 04/01/23 9:18 pm Reviewed By: Johnathan Matthews MD Signed By: Johnathan Matthews MD Signed Date/Time: 04/01/23 9:18 pm Transcribed By: CHRIS Transcribed Date/Time: 04/01/23 9:15 pm * Exam Date Time Procedure Performing Provider Status 04/01/23 8:[address] Head/Brain W/O Contrast Hansa Reese; Auth (Verified) Notes: (CT Head/Brain W/O Contrast) Reason For Exam: Trauma RESULT: CT Head/Brain W/O Contrast CT Head/Brain W/O Contrast, CT Cervical Spine W/O Contrast INDICATION: Hx of Present Illness: Patient having dizziness, CP starting early this AM. Patient hashx of [place] 2 months ago. Patient had positive stress test one month ago. Patient also endorses intermittent nausea.; Reason: Trauma; Clinical Question(s): Hematoma TECHNIQUE: Noncontrast head CT using axial technique was reconstructed in axial and coronal planes.Noncontrast spiral CT through the cervical spine was formatted in 3 planes. Automatic tube modulation was used for the cervical spine and iterative dose reconstruction was used for both the head and cervical spine to optimize scan parameters and image quality. COMPARISON: None. FINDINGS: Supervisor Of Way View Findings, Lines and Tubes: None. BRAIN AND EXTRA-AXIAL SPACES: No parenchymal hemorrhage, midline shift, or mass effect. Joyner-white matter differentiation is wellpreserved. No acute infarct. Ventricles, sulci, and basilar cisterns are normal. No white matter lesions. No subarachnoid hemorrhage. No subdural or epidural collection. CALVARIUM, SKULL BASE, AND SOFT TISSUES: No fractures or suspicious bony lesions. The paranasal sinuses and mastoid air cells are clear. Visualized orbits and globes are intact. The extracranial soft tissues are unremarkable. CERVICAL SPINE: No fracture. No acute osseous abnormalities. Normal alignment. No locked or perched facet. Moderate multilevel degenerative disc space narrowingand end plate irregularity. OTHER BONES: No acute abnormality. CERVICAL SOFT TISSUES AND LUNG APICES: Normal soft tissues. Visualized lung apices are clear. IMPRESSION: No acute abnormality of the head or cervical spine. WSN: [id number] Ordering Physician: Lawanda Sequeira Dictated By: Johnathan Matthews MD Dictated Date/Time: 04/01/23 9:18 pm Reviewed By: Johnathan Matthews MD Signed By: Johnathan Matthews MD Signed Date/Time: 04/01/23 9:18 pm Transcribed By: CHRIS Transcribed Date/Time: 04/01/23 9:15 pm Vital Signs Most recent to oldest [Reference Range]: 1 2 3 Oxygen Saturation [94-100 %] 96 % (04/02/23 4:17 AM) 96 % (04/01/23 10:15 PM) 95 % (04/01/23 6:37 PM) Pulse Rate [55-90 bpm] 77 bpm (04/02/23 4:17 AM) 69 bpm (04/01/23 10:15 PM) 64 bpm (04/01/23 6:37 PM) Blood Pressure [90-138/55-84 mm Hg] 109/70mm Hg (04/02/23 4:17 AM) 130/91mm Hg (04/01/23 10:15 PM) 139/83mm Hg *H* (04/01/23 6:32 PM) Respiratory Rate [16-30 br/min] 19 br/min (04/02/23 4:17 AM) 18 br/min (04/01/23 10:15 PM) 18 br/min (04/01/23 6:37 PM) Temperature [96.8-100.4 DegF] 98.2 DegF (04/02/23 4:17 AM) 98.4 DegF (04/01/23 6:32 PM) 98.4 DegF (04/01/23 5:57 PM) Mode of Delivery (Oxygen) Room air (04/02/23 4:17 AM) Room air (04/01/23 10:15 PM) Room air (04/01/23 6:37 PM) Blood pressure sites Arm, right (04/02/23 4:17 AM) Arm, right (04/01/23 10:15 PM) Arm, right (04/01/23 6:32 PM) Temperature Route Oral (04/02/23 4:17 AM) Oral (04/01/23 6:32 PM) Oral (04/01/23 5:57 PM) Social History Social History Type Response Smoking Status 10 or more cigarette s (1/2 pack or more)/day in last 30 days entered on: 04/02/23 Sex EKG study * Event Display: EKG Authored Date: * Event Display: ECG 12-Lead Authored Date: Please click on pdf link to open report * Event Display: ECG 12-Lead Authored Date: Ventricular Rate: 65 BPM Atrial Rate: 65 BPM P-R Interval: 144 ms QRS Duration: 104 ms Q-T Interval: 400 ms QTC Calculation(Bazett): 416 ms P [place]: 20 degrees R [place]: -22 degrees T [place]: 62 degrees Sinus rhythm Low voltage QRS Possible Inferior infarct , age undetermined Cannot rule out Anterior infarct (cited on or before 08-DEC-2022) Abnormal ECG Confirmed by MOISES PORTER ([id number]) on 04/02/2023 12:25:12 PM Wolsey: MOISES PORTER Cardiology * Event Display: Cardiac Rhythm Strips Authored Date: Hospital Progress note * Tiana GUAN, Patricio: PERFORM Event Display: Progress Note Hospital Authored Date: Patient: ??GEOVANNY LOPEZ ? Age:??52 Years?Sex:??Female?:??1970?? Assessment/Plan Patient signed out??to follow assumed care at 7 AM.?? I have not seen this patient. ??Patient left AMA * Amada Patricia RN: VERIFY, SIGN, PERFORM Event Display: Progress Note Hospital Authored Date: Patient: GEVOANNY LOPEZ Age: 52 years Sex: Female : 1970 Associated Diagnoses: None Author: Amada Patricia RN Findings Narrative/Incidental Patient requesting to be discharged early in the morning. Decided to leave AMA. Covering MD made aware. IV removed. Paperwork signed. Patient walked herself to the [facility] to be picked up. . Discharge Information Case Management Discharge Plan : Case Management Discharge Plan Data 04/02/2023 6:36 EST Discharge Level of Care at Discharge Home/Assisted/Foster Care Note * Amada Patricia RN: PERFORM Event Display: Discharge/Transfer Note Hospital Authored Date: [id number] Nursing Discharge Note Entered On: 04/02/2023 6:37 EST Performed On: 04/02/2023 6:36 EST by Amada Patricia RN Nursing Discharge Note 2 Discharge Time : 04/02/2023 6:35 EST Discharge Level of Care at Discharge : Home/Assisted/Foster Care AMA Form Signed : Yes Patient Left Unit Via : Ambulatory Patient Accompanied Off Unit with : Other: waiting in [facility] to be picked up DC Instructions Provided & Signed by Pt : No Patient Understands D/C Instructions : No Patient Instructions Discharge Signed : No Discharge Comments : patient left AMA no discharge instructions Did Pt have Specialty Bed or Wound Vac : No Amada Patricia RN - 04/02/2023 6:36 EST Patient Care team information Care Team Personnel Name: Chavez GUAN, Yissel Chavez Position: Reference Physician Member Role: PCP Address: Address: [address] [place] [address]- Name: *Sommer SCOTT Attending Position: [facility] ED Medicine Name: Roni Liu RN Position: [facility] ED RN W/OE and Tasks Member Role: Patient Care Provider Name: Lynda Bertrand Position: [facility] ED [facility] Name: Lawanda Sequeira MD Position: [facility] Resident Member Role: ED Resident Address: Address: [address] [place] [address] [place] [address]- Care Team Related Persons Name: ARTURORYAN Address: home [address] [place] [address] Name: SHAMEKA BARRY Address: home [address] [address] Name: DAKOTAH GAVIRIA Address: home [address] [place] [id number]
[2023-09-15 11:58] VITALS: BP 126/80; PULSE 74; RESP 18; O2SAT 95; BMI 26.3
[2023-09-15 11:59] VITALS: BP 126/80; PULSE 74; RESP 18; O2SAT 95
== END 2023-09-15 11:53 | disposition home or self-care (01) ==
LOC: HO.PMCPRC 10:54
PROVIDERS: PCP Physician Assistant; Visit Provider Anesthesiology
DX: M47.816 Spondylosis without myelopathy or radiculopathy, lumbar region (principal); G89.4 Chronic pain syndrome; M51.36 Other intervertebral disc degeneration, lumbar region; M16.0 Bilateral primary osteoarthritis of hip; M46.1 Sacroiliitis, not elsewhere classified; M51.16 Intervertebral disc disorders with radiculopathy, lumbar region; M54.16 Radiculopathy, lumbar region
CPT/HCPCS: 64493; 64494

== ENCOUNTER 2023-09-21 11:05 | Outpatient (AMB) | payer MEDICARE, MEDICAID, SELFPAY ==
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
[2023-09-21 11:12] VITALS: BP 136/64; PULSE 73; RESP 16; O2SAT 98; BMI 25.8
== END 2023-09-21 11:25 | disposition home or self-care (01) ==
PROVIDERS: PCP Physician Assistant; Visit Provider Anesthesiology
DX: M51.36 Other intervertebral disc degeneration, lumbar region (principal); M47.816 Spondylosis without myelopathy or radiculopathy, lumbar region; G89.4 Chronic pain syndrome; M16.0 Bilateral primary osteoarthritis of hip; M46.1 Sacroiliitis, not elsewhere classified; M51.16 Intervertebral disc disorders with radiculopathy, lumbar region; M54.16 Radiculopathy, lumbar region
CPT/HCPCS: 99213

== ENCOUNTER → 2023-09-21 11:05 | Outpatient (BNVA) | payer MEDICARE, MEDICAID, SELFPAY | PROVIDERS: PCP Physician Assistant; Visit Provider Anesthesiology | DX: M16.0 Bilateral primary osteoarthritis of hip (principal); M46.1 Sacroiliitis, not elsewhere classified; M51.16 Intervertebral disc disorders with radiculopathy, lumbar region | CPT/HCPCS: 99212 ==

== ENCOUNTER 2023-10-27 06:17 | Outpatient (REF) | payer MEDICARE, MEDICAID, SELFPAY ==
--- NOTE | ~2023-10-27 | FL_ITS ---
EXAMINATION: XR FLUOROSCOPY WITH IMAGES CLINICAL INFORMATION: Spondylosis without myelopathy or radiculopathy, lumbar region COMPARISON: 09/15/2023. TECHNIQUE: Fluoroscopy provided to: Fluoroscopy time: 0.1 min DAP: 0.0171 mGycm2 Images: 2 FINDINGS: 2 images submitted demonstrate the localizer needle placement overlying the left L3-4 intra-articular facet with subsequent contrast injection. FL/FL guidance in treatment room IMPRESSION: Fluoroscopic guidance. Please refer to the full operative report for details. Electronically signed by: Juan Valera MD 12/29/2023 09:18 AM EDT
== END 2023-10-27 06:18 | disposition home or self-care (01) ==
LOC: CF 06:17
PROVIDERS: Visit Provider Anesthesiology
DX: M47.816 Spondylosis without myelopathy or radiculopathy, lumbar region (principal)
CPT/HCPCS: 64555; C1778

== ENCOUNTER 2023-10-27 07:35 | Outpatient (AMB) | payer MEDICARE, MEDICAID, SELFPAY ==
[2023-10-27 07:36] VITALS: BP 111/69; PULSE 69; RESP 16; O2SAT 97; BMI 24.5
--- NOTE | 2023-10-27 07:36 | A.OFFVIS_ITS ---
Vital Signs 10/27/23 07:36 10/27/23 08:41 Height 5 ft 2 in 5 ft 2 in Weight 134 lb 134 lb BMI 24.5 24.5 BP 111/69 112/76 Blood Pressure Location Rt brachial Lt brachial Position Sitting Sitting Respiration 16 16 Pulse 69 76 Pulse Source Pulse Oximeter Pulse Oximeter Pulse Oximetry (%) 97 96 Oxygen Delivery Method Room Air Room Air Comment Pre-Op post-op Intake Visit Reasons: Sprint PNS left L-4 considering L5 Allergies aspirin Allergy (Unknown, Verified 10/27/23 08:44) upset stomach Alupent Allergy (Unknown, Uncoded 09/22/22 13:08) vomiting bees Allergy (Unknown, Uncoded 09/22/22 13:08) hives strawberries Allergy (Unknown, Uncoded 09/22/22 13:08) hives [facility] Medical History (Updated 01/13/23 @ 10:50 by Lester James MD) Sacroiliitis Osteoarthritis, hip, bilateral Chronic pain syndrome Spondylosis of lumbar region without myelopathy or radiculopathy Disc degeneration, lumbar Physical Exam Vital Signs: Last Vital Signs Pulse 76 10/27/23 08:41 Resp 16 10/27/23 08:41 BP 112/76 10/27/23 08:41 Pulse Ox 96 10/27/23 08:41 Oxygen Delivery Method Room Air 10/27/23 08:41 BMI result Body Mass Index 24.5 Office Procedures Sprint PNS Device: Sprint PNS Device Procedure code (CPT) selection complete Office Meds lidocaine (PF) 50 mg/5 mL (1 %) injection syringe Performing Provider: Nelli Moran APRN, [facility] Performing Location: [facility] Administered by: Lester James MD on 10/27/23 12:40 Dose Route Admin Location Dispensed Lot Number Expiration Date ND Scientific Diver 5 mL subcut 5 mL Assessment & Plan Assessment & Plan (1) Spondylosis of lumbar region without myelopathy or radiculopathy: Code(s): M47.816 - Spondylosis without myelopathy or radiculopathy, lumbar region Category: Medical Plan Sprint PNS L 4 on the left Percutaneous implantation of peripheral nerve stimulation Sprint system. After the risks, benefits and alternatives were discussed with the patient and informed consent was obtained, patient was placed in the prone position and padded to foster comfort. Time out was performed delineating correct site and side of the procedure , name and of the patient, patient participated in time out procedure. Sterily draped C-arm was brought over the operating field and clear picture of the L4 lamina on the on the right was delineated on the screen. The upper central portion of the lamina was chosen as a target of the needle tip insertion . After identifying and marking the intended target, the skin around the planned entry point and the subcutaneous tissues were injected with local anesthetic forming skin wheal.. A percutaneous sleeve and stimulating probe lead introduction system were assembled, inserted and advanced through the skin wheal to the point of interest under C-arm view in tunnel vision fashion, the introducer needle was delivered to a location in proximity to the nerve. Multiple stimulation para meters were used to deliver stimulation to the nerve in concert with stimulating at multiple positions around the nerve. nerve target acquisition was confirmed noting generation of in the corresponding to the nerve being stimulated. Various electrical parameter combinations were tested, and the lead location was adjusted (physically relocated) until the patient indicated overlapping the distribution of the patient?s typical region of pain. The stimulating probe was removed from the introducer and a percutaneous lead was guided through the needle and delivered to a location in similar proximity to the nerve. Final location was verified with electrical stimulation. The introducer needle was removed, and the exposed end of the percutaneous lead was attached to an external stimulator unit. At the end of the case various electrical parameter combinations were again tested until the patient indicated paresthesia or muscle tension overlapping the distribution of the patient?s typical region of pain. After confirming that lead impedance was in the normal range, the external unit was detached, the needle was removed, and the lead was anchored at the skin. The lead was threaded into the connector block and electrical continuity and desired patient response was confirmed. The connector block was attached to the external stimulator unit. The site was covered with a sterile occlusive dressing and a image was taken to document final placement Orders: Orders FL guidance in treatment room Today Nelli Moran APRN, [employer]ANGEMENT COUNSELOR M47.816 - Spondylosis without myelopathy or radiculopathy, lumbar region AMB Sprint PNS Today Nelli Moran APRN, [employer]ER[employer] PREARRANGEMENT COUNSELOR M47.816 - Spondylosis without myelopathy or radiculopathy, lumbar region Medications: New lidocaine (PF) 5 mL subcut ONCE 5 mL 0RF Lester Khibkin, MD M47.816 - Spondylosis without myelopathy or radiculopathy, lumbar region Coding Level of Care Code Procedure Only Diagnoses Spondylosis of lumbar region without myelopathy or radiculopathy M47.816 CPT Codes Sprint PNS - Sprint PNS Device: Sprint PNS Device ([id number])
[2023-10-27 08:41] VITALS: BP 112/76; PULSE 76; RESP 16; O2SAT 96; BMI 24.5
== END 2023-10-27 08:54 | disposition home or self-care (01) ==
PROVIDERS: PCP Physician Assistant; Visit Provider Anesthesiology
DX: M47.816 Spondylosis without myelopathy or radiculopathy, lumbar region (principal)
CPT/HCPCS: 64555

== ENCOUNTER 2023-11-11 10:55 | Outpatient (AMB) | payer MEDICARE, MEDICAID, SELFPAY ==
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
[2023-11-11 11:13] VITALS: BP 133/82; PULSE 55; RESP 16; O2SAT 100; BMI 24.5
== END 2023-11-11 11:15 | disposition home or self-care (01) ==
PROVIDERS: PCP Physician Assistant; Visit Provider Anesthesiology
DX: M51.36 Other intervertebral disc degeneration, lumbar region (principal); M47.816 Spondylosis without myelopathy or radiculopathy, lumbar region; G89.4 Chronic pain syndrome; M16.0 Bilateral primary osteoarthritis of hip; M46.1 Sacroiliitis, not elsewhere classified; M51.16 Intervertebral disc disorders with radiculopathy, lumbar region; M54.16 Radiculopathy, lumbar region
CPT/HCPCS: 99213

== ENCOUNTER → 2023-11-11 10:55 | Outpatient (BNVA) | payer MEDICARE, MEDICAID, SELFPAY | PROVIDERS: PCP Physician Assistant; Visit Provider Anesthesiology | DX: M51.36 Other intervertebral disc degeneration, lumbar region (principal); M47.816 Spondylosis without myelopathy or radiculopathy, lumbar region; M16.0 Bilateral primary osteoarthritis of hip; M46.1 Sacroiliitis, not elsewhere classified; M51.16 Intervertebral disc disorders with radiculopathy, lumbar region; M54.16 Radiculopathy, lumbar region; G89.4 Chronic pain syndrome | CPT/HCPCS: 99212 ==

== ENCOUNTER 2025-03-09 14:25 | Outpatient (AMB) | payer MEDICARE, MEDICAID, SELFPAY ==
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
[2025-03-09 14:29] VITALS: BP 123/67; PULSE 91; RESP 16; O2SAT 95; BMI 25.4
--- OUTSIDE RECORDS SUMMARY | 2025-03-09 20:02 | XMS_ITS | Clinical Summary ---
Author Organization [facility] Prior to 09/03/[address] [place] [address] Care Team Providers Care Tool Analyst Name Role Phone Unavailable Primary Care Provider Unavailabl e Social History Tobacco Use Types Packs/Day Years Used Date Smoking Tobacco: Never Assessed Sex and Gender Information Value Date Recorded Sex Assigned at Not on file Gender Identity Not on file Sexual Orientation Not on file Plan of Treatment Health Maintenance Due Date Last Done Comments Hepatitis B Vaccines (1 of 3 - 3-dose series) 1970 Hepatitis C Screening 1970 COVID-19 Vaccine (#1) 1970 Depression Screening 1982 Preventative Health Evaluation 1988 DTap / Tdap / Td (1 - Tdap) 1989 Cervical Cancer Screening (P ap Smear) 1991 Colon Cancer Screening (Colonoscopy) 2015 Breast Cancer Screening (Mammogram) 2020 Shingrix-Zoster Vaccine (1 of 2) 2020 Influenza Vaccine (#1) 2024 01/26/2019 Pneumococcal Vaccine Aged Out 03/15/2020 No long er eligible based on patient's age to complete this topic RSV Ped < 20 months Aged Out No longe r eligible based on patient's age to complete this topic
--- OUTSIDE RECORDS SUMMARY | 2025-03-09 20:02 | XMS_ITS | Clinical Summary ---
Author Organization [facility] [address] [facility] Address [address] [place] [address] Phone Care Team Providers Care Irrigation Installation Specialist Name Role Phone Yissel Byrne MD Primary Care Provider + Allergies Active Allergy Reactions Criticality Noted Date Comments Aspirin Unknown,GI intolerance Medium 02/02/2016 Other reaction(s): Unknown/Patient and Family Unable to Define Bee Pollen 02/08/2020 Bee Venom Protein (Honey Bee) Hives 05/30/2024 Metaproterenol Unknown Medium 02/02/2016 Other Reaction(s): SHAKE Other reaction(s): Unknown/Patient and Family Unable to Define [place] Hives 05/30/2024 [place] Extract Unknown Medium 02/02/2016 Other reaction(s): Unknown/Patient and Family Unable to Define Medications rosuvastatin 40 mg capsule, sprinkle Take 40 mg by mouth. 3 Active ondansetron (ZOFRAN) 4 mg tablet TAKE 1 TABLET BY MOUTH EVERY 8 HOURS FOR 5 DAYS NEEDED FOR NAUSEA OR VOMITING 4 Active gabapentin (NEURONTIN) 300 mg capsule Take 1 capsule (300 mg total) by mouth. Active Ventolin HFA 90 mcg/actuation inhaler Inhale 2 puffs by mouth every 4 (four) hours. 5 Active ipratropium/alb uterol sulfate (COMBIVENT RESPIMAT INHL) Refills 0, Maintenance, 04/02/23 1:03:00 AM EST 3 Active clonazePAM (KlonoPIN) 0.5 mg tablet Take 1 tablet (0.5 mg total) by mouth 2 (two) times a day. Active QUEtiapine (SEROquel) 300 mg tablet Take 1 tablet (300 mg total) by mouth 1 (one) time each day. Active omeprazole OTC (PriLOSEC OTC) 20 mg EC tabletIndicatio ns:Bilious vomiting with nausea Take 1 tablet (20 mg total) by mouth 1 (one) time each day. Do not crush, chew, or split. 30 tablet 11 5 05/30/19 26 Active oxyCODONE (ROXICODONE) 5 mg immediate release tabletIndicatio ns:Injury of left wrist, initial encounter Take 1 tablet (5 mg total) by mouth every 8 (eight) hours if needed for severe pain. Max Daily Amount: 15 mg 9 tablet Active Additional Information Patient not taking.Reported on 09/05/2024 fluticasone furoate-vilante roL (Breo Ellipta) 100-25 mcg/dose inhaler Inhale 1 puff by mouth 1 (one) time each day. Active Active Problems Problem Noted Date Diagnosed Date Nausea and vomiting 07/12/2024 Bilious vomiting with nausea 05/30/2024 Surgical History Surgery Date Site/Laterality Comments HYSTERECTOMY N/A TUBAL LIGATION N/A Medical History Medical History Date Comments GERD (gastroesophageal reflux disease) Asthma Hyperlipidemia TBI (traumatic brain injury) ([facility] V24, [facility]/ CC V28) 1999 Social History Tobacco Use Types Packs/Day Years Used Date Smoking Tobacco: Former Cigarettes Tobacco Cessation:Counseling Given: Not Answered Alcohol Use Standard Drinks/Week Comments Not Currently 0 (1 standard drink = 0.6 oz pur e alcohol) Interpersonal Safety Answer Date Record ed Physical Abuse Unrecognized value 07/13/2024 Verbal Abuse Unrecognized value 07/13/2024 Comments Unknown Sex and Gender Information Value Date Recorded Sex Assigned at Female 07/13/2024 7:12 AM EDT Legal Sex Female 2:54 AM EST Gender Identity Female 07/13/2024 7:12 AM EDT Sexual Orientation Straight 07/13/2024 7: 12 AM EDT Obstetrics History Last Filed Vital Signs Vital Sign Reading Time Taken Comments Blood Pressure 116/87 07/30/2024 4:55 PM EDT Pulse 113 07/30/2024 4:55 PM EDT Temperature 36.9 C (98.4 F) 07/30/2024 4:55 PM EDT Respiratory Rate 18 07/30/2024 4:55 PM EDT Oxygen Saturation 97% 07/30/2024 4:55 PM EDT Inhaled Oxygen Concentration - - Weight 61.7 kg (136 lb) 09/05/2024 12:53 PM EDT Height 157.5 cm (5' 2 ) 09/05/2024 12:53 PM EDT Body Mass Index 24.87 09/05/2024 12:53 PM EDT Plan of Treatment Health Maintenance Due Date Last Done Comments Colorectal Cancer Screening: Colonoscopy 1970 Hepatitis B Vaccines (1 of 3 - 19+ 3-dose series) 1989 Cervical Cancer Screening: Pap Smear 1991 RSV Immunization Adult Patients (1 - Risk 50-74 years 1-dose series) 2020 Zoster Vaccines (1 of 2) 2020 Pneumococcal Vaccine: 50+ Years (2 of 2 - PCV) 03/15/2021 03/15/2020 HIV Screening 03/09/2022 Medicare Annual Wellness Visit 03/09/2022 Social Influencers of Health Screening 03/09/2022 Depression Screening 04/06/2024 Hypertension/CHF/CAD Annual BMP Blood Test 05/27/2024 04/08/2021, 04/18/2020, 03/15/2020, Additional history exists COVID-19 Vaccine ( season) 2024 03/23/2021, 07/25/2020, 07/04/2020 Influenza Vaccine (#1) 2024 , 01/06/2023, 01/26/2019 Breast Cancer Screening 06/02/2026 06/02/2024, 04/27 Cholesterol Screening (Lipid Panel) 02/02/2029 02/03/2024 DTaP,Tdap,and Td Vaccines (3 - Td or Tdap) 12/30/2032 12/30/2022, 01/16/2021 Hepatitis C Screening Completed 04/08/2021 HIB Vaccines Aged Out No longer eligi ble based on patient's age to complete this topic HPV Vaccines Aged Out No longer eligi ble based on patient's age to complete this topic Hepatitis A Vaccines Aged Out No long er eligible based on patient's age to complete this topic IPV Vaccines Aged Out No longer eligi ble based on patient's age to complete this topic MMR Vaccines Aged Out No longer eligi ble based on patient's age to complete this topic Meningococcal ACWY Vaccine Aged Out N o longer eligible based on patient's age to complete this topic Meningococcal B Vaccine Aged Out No l onger eligible based on patient's age to complete this topic RSV Immunization Patients Under 20 months Aged Out No longer eligible based on patient's age to complete this topic Varicella Vaccines Aged Out No longer eligible based on patient's age to complete this topic Insurance MEDICA[place] - [place] MEDICARE Care Teams Irrigation Installation Specialist Relationship Specialty Start Date End Date Yissel Byrne MD [address] [place] [id number] PCP - General Family Medicine 04/21/24
--- OUTSIDE RECORDS SUMMARY | 2025-03-09 20:03 | XMS_ITS | Encounter Summary ---
Author Organization [facility] Address [address] [place] [address] Phone Care Team Providers Care Display Coordinator Name Role Phone Christopher Tobar MD Unavailable [phone] Morenita Camp Primary Care Provide r Salome Le RN Unavailable [email or web address] Wayne Fischer MD Unavailable [phone] Shawanda Ramey MD Primary Care Provid er Yissel Byrne MD Primary Care Provider + Yissel Byrne MD Primary Care Provider + Encounter Details Date Type Department Care Team (Late st Contact Info) Description 03/21/2021 Ancillary Orders [facility],Outside Imaging [address] [place] [address] System, Provider Not In, PhD Partners [address] [address] Social History Tobacco Use Types Packs/Day Years Used Date Smoking Tobacco: Light Smoker Cigarettes 0.3 40 Smokeless Tobacco: Never Comments:Currently smoking 5 cigarettes daily Alcohol Use Standard Drinks/Week Comments Not Currently 0 (1 standard drink = 0.6 oz pur e alcohol) Comments Unknown Sex and Gender Information Value Date Recorded Sex Assigned at Female 02/08/2020 8:38 PM EST Legal Sex Female 1:12 PM EDT Gender Identity Female 02/08/2020 8:38 PM EST Sexual Orientation Straight 09/13/2020 10 :19 AM EDT documented as of this encounter Plan of Treatment Upcoming Encounters Date Type Department Care Team (Late st Contact Info) Description 08/22/2025 8:00 AM EDT Appointment [facility] [place] [address] [place] [address] Mak Mie, DO 22 [facility] [address] [place] [address] 02/20/2026 10:15 AM EST Office Visit [facility] [address], [address] [place] [address] Mak Mei, DO [address] [facility] [address] [place] [address] documented as of this encounter Results * Mammogram Outside (No Interpretation) (05/12/2014 12:00 AM EST) Narrative SYSTEMGENERATED, DOCUMENTATION - 03/21/2021 5:41 PM EST This study is for PACS storage only and not for interpretation. us Provider Not In System PhD IMG OUTSIDE IMAGING W /OUT INTERPRETATION Final Result documented in this encounter Visit Diagnoses Not on filedocumented in this encounter Additional Health Concerns Assessment Noted Time PHQ-9 Depression Total Score: 12 019 10:11 AM EDT PHQ-2 Depression Total Score: 0 03/20/20 21 9:09 AM EST documented as of this encounter Care Teams Display Coordinator Relationship Specialty Start Date End Date Morenita Camp PA [address] [place] [phone] [email or web address] PCP - General 04/18/20 09/15/21 Shawanda Ramey MD 22 [facility] [address] [place] [address] [email or web address] PCP - General Family Medicine 09/16/21 05/15/22 Yissel Byrne MD [address] [place] [address] [email or web address] PCP - General Family Medicine 08/22/22 07/28/23 Yissel Byrne MD [address] [place] [address] [email or web address] PCP - General Family Medicine 07/29/23 Christopher Tobar MD [address] [place] [address] Insurance Assigned Provider Internal Medicine 01/24/19 Salome Le, RN [address] [place] [address] [email or web address] [facility] [place] 11/28/20 02/12/22 Wayne Fischer MD [address] [place] [phone] Insurance Assigned Provider 07/13/21 01/11/22 [facility] Primary Care Physician 05/07/22 documented as of this encounter Additional Source Comments The information contained in this document represents components of the legal health record. It is not the complete legal health record.[facility]
--- OUTSIDE RECORDS SUMMARY | 2025-03-09 20:03 | XMS_ITS | Encounter Summary ---
Author Organization [facility] Address [address] [place] [address] Phone Care Team Providers Care Machine Plate Stacker Name Role Phone Christopher Tobar MD Unavailable [phone] Morenita Camp Primary Care Provide r Salome Le RN Unavailable [email or web address] Wayne Fischer MD Unavailable [phone] Shawanda Ramey MD Primary Care Provid er Yissel Byrne MD Primary Care Provider + Yissel Byrne MD Primary Care Provider + Encounter Details Date Type Department Care Team (Late st Contact Info) Description 03/27/2021 Ancillary Orders [facility],Outside Imaging [address] [place] [address] System, Provider Not In, PhD Partners [address] [address] Social History Tobacco Use Types Packs/Day Years [...] 08/22/2025 8:00 AM EDT Appointment [facility] [place] [address] [place] [address] Mak Mei, DO 22 [facility] [address] [place] [address] [email or web address] 02/20/2026 10:15 AM EST Office Visit [facility] [address], [address] [place] [address] Mak Mei, DO 22 [facility] [address] [place] [address] [email or web address] documented as of this encounter Results * Mammogram Outside (No Interpretation) (11/11/2016 12:00 AM EDT) Narrative SYSTEMGENERATED, DOCUMENTATION - 03/27/2021 11:00 AM EST This study is for PACS storage only and not for interpretation. us Provider Not In System PhD IMG OUTSIDE IMAGING W /OUT INTERPRETATION Final Result * Mammogram Outside (No Interpretation) (07/27/2015 12:00 AM EDT) Narrative SYSTEMGENERATED, DOCUMENTATION - 03/27/2021 11:01 AM EST This study is for PACS storage only and not for interpretation. us Provider Not In System PhD IMG OUTSIDE IMAGING W /OUT INTERPRETATION Final Result * US Breast Outside (No Interpretation) (09/13/2014 12:00 AM EDT) Narrative SYSTEMGENERATED, DOCUMENTATION - 03/27/2021 11:02 AM EST This study is for PACS storage only and not for interpretation. us Provider Not In System PhD IMG OUTSIDE IMAGING W /OUT INTERPRETATION Final Result * Mammogram Outside (No Interpretation) (04/04/2014 12:00 AM EST) Narrative SYSTEMGENERATED, DOCUMENTATION - 03/27/2021 11:02 AM EST This study is for PACS storage [...] documented as of this encounter Care Teams Machine Plate Stacker Relationship Specialty Start Date End Date Morenita Camp PA [address] [place] [address] [email or web address] PCP - General 04/18/20 09/15/21 Shawanda Ramey MD [address] [place] [address] [email or web address] PCP - General Family Medicine 09/16/21 05/15/22 Yissel Byrne MD [address] [place] [address] [email or web address] PCP - General Family Medicine 08/22/22 07/28/23 Yissel Byrne MD [address] [place] [address] [email or web address] PCP - General Family Medicine 07/29/23 Christopher Tobar MD [address] [place], [place] [address] [place] [address] [email or web address] Insurance Assigned Provider Internal Medicine 01/24/19 Salome Le, RN [address] [place] [address] [email or web address] Educational Technologist 11/28/20 02/12/22 Wayne Fischer MD [address] [place] [address], [address] [place] [address] [email or web address] Insurance Assigned Provider 07/13/21 01/11/22 [facility] Primary Care Physician 05/07/22 documented as of this encounter Additional Source Comments The information contained in this document represents components of the legal health record. It is not the complete legal health record.[facility]
--- OUTSIDE RECORDS SUMMARY | 2025-03-09 20:03 | XMS_ITS | Encounter Summary ---
Author Organization [facility] Address [address] [place] [address] Phone Care Team Providers Care Offal Trimmer Name Role Phone Christopher Tobar MD Unavailable [phone] Morenita Camp Primary Care Provide r Salome Le RN Unavailable [email or web address] Wayne Fischer MD Unavailable [phone] Shawanda Ramey MD Primary Care Provid er Yissel Byrne MD Primary Care Provider + Yissel Byrne MD Primary Care Provider + Encounter Details Date Type Department Care Team (Late st Contact Info) Description 04/04/2021 Ancillary Orders ,Outside Imaging [address] [place] [address] System, Provider Not In, [facility] Partners [address] [address] Social History Tobacco Use Types Packs/Day Years [...] 08/22/2025 8:00 AM EDT Appointment [facility] [place] [address] [place] [address] Mak Mei, DO 22 [facility] [address] [place] [address] 02/20/2026 10:15 AM EST Office Visit [facility] [address], [address] [place] [address] Mak Mei, DO 22 [facility] [address] [place] [address] documented as of this encounter Results * Mammogram Outside (No Interpretation) (11/12/2017 12:00 AM EDT) Narrative SYSTEMGENERATED, DOCUMENTATION - 04/04/2021 8:44 AM EST This study is for PACS [...] documented as of this encounter Care Teams Offal Trimmer Relationship Specialty Start Date End Date Morenita Camp PA [address] [place] [address] [email or web address] PCP - General 04/18/20 09/15/21 Shawanda Ramey MD 22 [facility] [address] [place] [address] [email or web address] PCP - General Family Medicine 09/16/21 05/15/22 Yissel Byrne MD [address] [place] [address] [email or web address] PCP - General Family Medicine 08/22/22 07/28/23 Yissel Byrne MD [address] [place] [address] [email or web address] PCP - General Family Medicine 07/29/23 Christopher Tobar MD [address] [place] [phone] Insurance Assigned Provider Internal Medicine 01/24/19 Salome Le, RN [address] [place] [address] [email or web address] [facility] Damage Prevention Coordinator 11/28/20 02/12/22 Wayne Fischer MD [address] [place] [phone] Insurance Assigned Provider 07/13/21 01/11/22 [facility] Primary Care Physician 05/07/22 documented as of this encounter Additional Source Comments The information contained in this document represents components of the legal health record. It is not the complete legal health record.[facility]
--- OUTSIDE RECORDS SUMMARY | 2025-03-09 20:04 | XMS_ITS | Clinical Summary ---
Author Organization [facility] Address [address] [place] [address] Care Team Providers Care Recruiting Administrator Name Role Phone Monica Sr I DELBERT Primary Care Provider [phone] Allergies Active Allergy Reactions Criticality Noted Date Comments Metaproterenol Unknown/Patient and Family Unable to Define Medium 02/02/2016 Aspirin Unknown/Patient and Family Unable to Define Medium 02/02/2016 [place] Extract Unknown/Patient and Family Unable to Define Medium 02/02/2016 Medications * This document contains information received from the source organization and may not represent a complete record from that organization. QUEtiapine (SEROquel) 300 MG tablet Take 300 mg by mouth nightly. Active propranolol (INDERAL) 60 MG tablet Take 60 mg by mouth 2 (two) times a day. Active famotidine (PEPCID) 20 MG tablet Take 20 mg by mouth daily. Active solifenacin (VESICARE) 5 MG tablet Take 5 mg by mouth daily. Active rosuvastatin (CRESTOR) 40 MG tablet Take 40 mg by mouth daily. Active budesonide-form oterol (SYMBICORT) 160-4.5 MCG/ACT inhaler Inhale 2 puffs 2 (two) times a day. Active zonisamide (ZONEGRAN) 100 MG capsuleIndicati ons:Localizatio n-related epilepsy (HCC) TAKE 1 CAPSULE BY MOUTH EVERY DAY WEEK 1AND 2 THEN 2 CAPSULE BY MOUTH EVERY DAY WEEK 3 270 capsule 3 9 08/23/19 23 Discontinu ed(Formula ry change) Social History Tobacco Use Types Packs/Day Years Used Date Smoking Tobacco: Every Day Cigarettes 3 20 Smokeless Tobacco: Never Alcohol Use Standard Drinks/Week Comments Not Currently 0 (1 standard drink = 0.6 oz pur e alcohol) Comments No Sex and Gender Information Value Date Recorded Sex Assigned at Not on file Legal Sex Female 4:49 PM EDT Gender Identity Not on file Sexual Orientation Not on file Last Filed Vital Signs Vital Sign Reading Time Taken Comments Blood Pressure 110/81 10/04/2018 8:29 AM EDT Pulse 89 10/04/2018 8:29 AM EDT Temperature 35.8 C (96.5 F) 06/27/2018 8:23 PM EDT Respiratory Rate 16 10/04/2018 8:29 AM EDT Oxygen Saturation 98% 06/27/2018 10:46 PM EDT Inhaled Oxygen Concentration - - Weight 64.5 kg (142 lb 3.2 oz) 10/04/2018 8:29 A M EDT Height 157.5 cm (5' 2 ) 10/04/2018 8:29 AM EDT Body Mass Index 26.01 10/04/2018 8:29 AM EDT Plan of Treatment Not on file Insurance [facility] MEDICARE [facility] MEDICARE Care Teams Recruiting Administrator Relationship Specialty Start Date End Date Monica Sr APRN PCP - General 11/21/16
--- OUTSIDE RECORDS SUMMARY | 2025-03-09 20:04 | XMS_ITS | Encounter Summary ---
Author Organization [facility] Address [address] [place] [address] Phone Care Team Providers Care Plastic And Reconstructive Surgeon Name Role Phone Christopher Tobar MD Unavailable [phone] Sandra MuroW Unavailable [email or web address] Unavailable [phone] Morenita Camp Primary Care Provide r Morenita Camp Primary Care Provide r Salome Le RN Unavailable [email or web address] Wayne Fischer MD Unavailable [phone] Shawanda Ramey MD Primary Care Provid er Yissel Byrne MD Primary Care Provider + Yissel Byrne MD Primary Care Provider + Encounter Details Date Type Department Care Team (Late st Contact Info) Description 04/25/2019 Ancillary Orders [facility],Outside Imaging [address] [place] [address] System, Provider Not In, PhD Partners [address] [address] Social History Tobacco Use Types Packs/Day Years Used Date Smoking Tobacco: Every Day Cigarettes 0.3 40 Smokeless Tobacco: Never Alcohol Use Standard Drinks/Week [...] 08/22/2025 8:00 AM EDT Appointment [facility] [address] [place] [address] Mak Mei, DO [address] [place] [address] [place] [address] 02/20/2026 10:15 AM EST Office Visit [facility] [address]rd [facility], [address] [place] [address] Mak Mei DO 22 [facility] [address] [place] [address] documented as of this encounter Results * MRI Brain Outside (No Interpretation) (11/05/2018 12:00 AM EDT) Narrative SYSTEMGENERATED, DOCUMENTATION - 04/25/2019 8:47 AM EST This study is for PACS storage only and not for interpretation. us Provider Not In System PhD IMG OUTSIDE IMAGING W /OUT INTERPRETATION Final Result documented in this encounter Visit Diagnoses Not on filedocumented in this encounter Additional Health Concerns Infection Onset Date Last Indicated Resolved Time CoV-Risk 02/08/2020 02/08/2020 02/22/2020 1:24 AM EST Assessment Noted Time PHQ-9 Depression Total Score: 12 019 10:11 AM EDT PHQ-2 Depression Total Score: 3 02/19/20 19 3:48 PM EST documented as of this encounter Care Teams Plastic And Reconstructive Surgeon Relationship Specialty Start Date End Date Morenita Camp PA [address] [place] [address] [email or web address] PCP - General 03/16/19 04/17/20 Morenita Camp PA [address] [place] [address] [email or web address] PCP - General 04/18/20 09/15/21 Shawanda Ramey MD [address] [place] [address] [email or web address] PCP - General Family Medicine 09/16/21 05/15/22 Yissel Byrne MD [address] [place] [address] [email or web address] - General Family Medicine 08/22/22 07/28/23 Yissel Byrne MD [address] [place] [address] [email or web address] - General Family Medicine 07/29/23 Christopher Tobar MD [address] [place] [address], [address] [place] [address] [email or web address] Insurance Assigned Provider Internal Medicine 01/24/19 Sandra Muro, STOCKROOM SUPERVISOR [address] [place] [address], [address] [place] [address] [email or web address] PHCM Pallet Stone Positioner 01/26/19 11/27/20 Rhina Woodruff [address] [place] [address] [email or web address] PHCM Community Health Worker 02/17/19 11/06/19 Salome Le, RN [address] [place] [address] [email or web address] 11/28/20 02/12/22 Wayne Fischer MD [address] [place] [address], [address] [place] [address] [email or web address] Insurance Assigned Provider 07/13/21 01/11/22 [facility] Primary Care Physician 05/07/22 documented as of this encounter Additional Source Comments The information contained in this document represents components of the legal health record. It is not the complete legal health record.[facility]
--- OUTSIDE RECORDS SUMMARY | 2025-03-09 20:04 | XMS_ITS | Encounter Summary ---
Author Organization [facility] Address [address] [place], [place] [id number] Phone Care Team Providers Care Director Community Organization Name Role Phone Christopher Tobar MD Unavailable [phone] Morenita Camp Primary Care Provide r Salome Le RN Unavailable [email or web address] Wayne Fischer MD Unavailable [phone] Shawanda Ramye MD Primary Care Provid er Yissel Byrne MD Primary Care Provider + Yissel Byrne MD Primary Care Provider + Encounter Details Date Type Department Care Team (Late st Contact Info) Description 03/20/2021 Procedure Pass [facility], [address] [address] Social History Tobacco Use Types Packs/Day Years [...] 08/22/2025 8:00 AM EDT Appointment [facility] [address] 3rd [place] [address] Mak Mei, DO 22 [facility] [address] [place] [address] [email or web address] 02/20/2026 10:15 AM EST Office Visit [facility] [address]rd Floor, [address] [place] [address] Mak Mei, DO 22 [facility] [address] [place] [address] [email or web address] documented as of this encounter Visit Diagnoses Not on filedocumented in this encounter Additional Health Concerns Assessment Noted Time PHQ-9 Depression Total Score: 12 019 10:11 AM EDT PHQ-2 Depression Total Score: 0 03/20/20 21 9:09 AM EST documented as of this encounter Care Teams Director Community Organization Relationship Specialty Start Date End Date Morenita Camp PA [address] [place] [address] [email or web address] PCP - General 04/18/20 09/15/21 Shawanda Ramey MD [address] [address] [email or web address] PCP - General Family Medicine 09/16/21 05/15/22 Yissel Byrne MD [address] [place] [address] [email or web address] PCP - General Family Medicine 08/22/22 07/28/23 Yissel Byrne MD [address] [place] [address] [address] [place] [address] [email or web address] PCP - General Family Medicine 07/29/23 Christopher Tobar MD [address] [place] [address], [address] [place] [address] Insurance Assigned Provider Internal Medicine 01/24/19 Salome Le, RN [address] [place] [address] [email or web address] .[email or web address] [facility] Pack Train Driver 11/28/20 02/12/22 Wayne Fischer MD [address] [place] [address], [address] [place] [address] Insurance Assigned Provider 07/13/21 01/11/22 [facility] Primary Care Physician 05/07/22 documented as of this encounter Additional Source Comments The information contained in this document represents components of the legal health record. It is not the complete legal health record.[facility]
--- OUTSIDE RECORDS SUMMARY | 2025-03-09 20:04 | XMS_ITS | Encounter Summary ---
Author Organization [facility] Address [address] [place] [address] Phone Care Team Providers Care Exercise Teacher Name Role Phone Christopher Tobar MD Unavailable [phone] Yissel Byrne MD Primary Care Provider + Yissel Byrne MD Primary Care Provider + Encounter Details Date Type Department Care Team (Latest Contact Info) Description 08/29/2022 Transcribe Orders Virtual Department 30 [place] [address] Yissel Byrne MD [address] [place] [address] [email or web address] Breast screening (Primary Dx) Social History Tobacco Use Types Packs/Day Years Used Date Smoking Tobacco: Light Smoker Cigarettes 0.3 40 Smokeless Tobacco: Never Comments:Currently smoking 1 0 cigarettes daily Alcohol Use Standard Drinks/Week Comments Not Currently 0 (1 standard drink = 0.6 oz pur e alcohol) Education Answer Date Recorded Are you interested in more education? Not on maximo e 08/01/2022 Are you concerned about learning? Not on file 08/01/2022 No 08/01/2022 No 08/01/2022 Digital Access Answer Date Recorded No 08/27/2022 No 08/27/2022 Reliable internet access at home? Not on file 08/27/2022 Device with a working camera? Not on file Comments No Sex and Gender Information Value [...] 08/22/2025 8:00 AM EDT Appointment [facility] [address] 3rd [place] [address] Mak Mei DO [address] [place] [address] [place] [address] 02/20/2026 10:15 AM EST Office Visit [facility] [address]rd [facility], [address] [place] [address] Mak Mei DO [address] [place] [address] [place] [address] documented as of this encounter Results * (ABNORMAL) BI MAMMOGRAM SCREENING WITH TOMOSYNTHESIS WITH CAD (BILATERAL) (11/21/2022 10:10 AM EDT) Anatomical Region Laterality Modality Breast Left, Breast Right, Breast Bilateral Bila teral Mammography 11/29/2022 3:57 PM EDT Impressions 11/29/2022 4:11 PM EDT 1. Increasing right breast microcalcification with some suggestion of alignment in a linear/branching configuration prompting recommendation for right breast diagnostic mammography. Recommend spot magnification views CC and 90 degree mediolateral projections. 2. No suspicious interval change on the left. BI-RADS: BI-RADS CATEGORY: 0 - Incomplete. Need additional imaging evaluation. RIGHT RECOMMENDATION DUE DATE: At This Time Recommendation: Right Additional Imaging LEFT RECOMMENDATION DUE DATE: on schedule Recommendation: Left Mammography Screening Narrative 11/29/2022 4:11 PM EDT History: Breast cancer screening STUDY: Bilateral screening mammography with tomosynthesis and CAD TECHNIQUE: Bilateral full-field digital screening mammography is obtained and read in conjunction with computer-aided detection. Tomosynthesis as well as 2-D C view imaging were obtained. COMPARISON: Comparison made with multiple prior, most recent 04/24/2021, and most remote 04/04/2014. FINDINGS: Breast tissue is heterogeneous, decreasing sensitivity of mammography. There are scattered microcalcifications bilaterally for the most part exhibiting an indolent appearance. There is some suggestion of branching affecting grouped calcifications within the posterior lateral to mid right breast which prompts recommendation for further evaluation with diagnostic mammography. No suspicious change in left breast microcalcifications or tissue asymmetries bilaterally. DENSITY: The breast tissue is heterogeneously dense, which could obscure a lesion on mammography. us Yissel Byrne MD IMG MG EXAMS Final Re sult documented in this encounter Visit Diagnoses Diagnosis Breast screening- Primary Breast screening, unspecified Breast screening Breast screening, unspecified documented in this encounter Additional Health Concerns Assessment Noted Time PHQ-9 Depression Total Score: 12 019 10:11 AM EDT PHQ-2 Depression Total Score: 0 03/20/20 21 9:09 AM EST documented as of this encounter Care Teams Exercise Teacher Relationship Specialty Start Date End Date Yissel Byrne MD [address] [place] [address], [address] [place] [address] [email or web address] PCP - General Family Medicine 08/22/22 07/28/23 Yissel Byrne MD [address] [place] [address], [address] [place] [address] [email or web address] - General Family Medicine 07/29/23 Christopher Tobar MD [address] [place] [address], [address] [place] [address] [email or web address] Insurance Assigned Provider Internal Medicine 01/24/19 [facility] Primary Care Physician 05/07/22 documented as of this encounter Additional Source Comments The information contained in this document represents components of the legal health record. It is not the complete legal health record.[facility]
--- OUTSIDE RECORDS SUMMARY | 2025-03-09 20:05 | XMS_ITS | Encounter Summary ---
Author Organization [facility] Address [address] [place] [address] Phone Care Team Providers Care Credit Review Analyst Name Role Phone Christopher Tobar MD Unavailable [phone] Yissel Byrne MD Primary Care Provider + Yissel Byrne MD Primary Care Provider + Encounter Details Date Type Department Care Team (Late st Contact Info) Description 01/29/2023 Procedure Pass [facility], [facility] [address] [place] [address] Social History Tobacco Use Types Packs/Day Years [...] 08/22/2025 8:00 AM EDT Appointment [facility] [address] 3rd [place] [address] Mak Mei, DO 22 [facility] [address] [place] [address] [email or web address] 02/20/2026 10:15 AM EST Office Visit [facility] [address] Floor, [address] [place] [address] Mak Mei, DO 22 [facility] [address] [place] [address] documented as of this encounter Visit Diagnoses Not on filedocumented in this encounter Additional Health Concerns Assessment Noted Time PHQ-9 Depression Total Score: 12 019 10:11 AM EDT PHQ-2 Depression Total Score: 0 03/20/20 21 9:09 AM EST documented as of this encounter Care Teams Credit Review Analyst Relationship Specialty Start Date End Date Yissel Byrne MD [address] [place] [address], [address] [place] [address] [email or web address] PCP - General Family Medicine 08/22/22 07/28/23 Yissel Byrne MD [address] [place] [address], [address] [place] [address] [email or web address] PCP - General Family Medicine 07/29/23 Christopher Tobar MD [address] [place] [address], [address] [place] [address] Insurance Assigned Provider Internal Medicine 01/24/19 [facility] Primary Care Physician 05/07/22 documented as of this encounter Additional Source Comments The information contained in this document represents components of the legal health record. It is not the complete legal health record.[facility]
--- OUTSIDE RECORDS SUMMARY | 2025-03-09 20:05 | XMS_ITS | Encounter Summary ---
Author Organization [facility] Address [address] [facility] [address] [place] [address] Phone Care Team Providers Care Finish Inspector Name Role Phone Christopher Tobar MD Unavailable [phone] Yissel Byrne MD Primary Care Provider + Yissel Byrne MD Primary Care Provider + Reason for Referral * - Closed Specialty Diagnoses / Procedures Referred By Contac t Referred To Contact Radiology Diagnoses Abnormal cardiovascular stress test Claudication in peripheral vascular disease Pure hypercholesterolemia Procedures US Lower Extremity Arteries (MARISEL) Physio Complete Bilat Mak Mei DO Phone: tel: fax: [email or web address] Referral ID Status Reason Start Date Expiration Date Visits Re quested Visits Authorized [id number] Closed 06/24/2023 06/23/2024 1 1 Encounter Details Date Type Department Care Team (Latest Contact Info) Description 06/24/2023 Ancillary Orders [facility] [address] [facility] 3rd Floor, [address] [place] [address] Mak Mei DO 22 [facility] [address] [place] [address] [email or web address] Abnormal cardiovascular stress test (Primary Dx); Claudication in peripheral vascular disease; Pure hypercholesterolemia Social History Tobacco Use Types Packs/Day Years [...] 08/22/2025 8:00 AM EDT Appointment [facility] [address] [place] [address] Mak Mei, [address] [place] [address] 02/20/2026 10:15 AM EST Office Visit [facility] [address], [address] [place] [address] Mak Mei, DO [address] [place] [address] documented as of this encounter Results * US Lower Extremity Arteries (MARISEL) Physio Complete Bilat (06/24/2023 1:37 PM EDT) Arm 110 mmHg Posterior Tibial 160 mmHg Posterior Tibial Index 1.45 Dorsalis Pedis 130 mmHg Dorsalis Pedis Index 1.18 Arm 110 mmHg Posterior Tibial 130 mmHg Posterior Tibial Index 1.18 Dorsalis Pedis 120 mmHg Dorsalis Pedis Index 1.09 Anatomical Region Laterality Modality Ultrasound Narrative 06/26/2023 8:31 AM EDT Normal Ankle/ Brachial Indices bilaterally. Multiphasic flow. No evidence of significant obstructive peripheral arterial disease. us Mak Mei DO CV US VASCULAR Final Result documented in this encounter Visit Diagnoses Diagnosis Abnormal cardiovascular stress test Other nonspecific abnormal cardiovascular system function study Claudication in peripheral vascular disease Pure hypercholesterolemia Abnormal cardiovascular stress test- Primary Other nonspecific abnormal cardiovascular system function study Claudication in peripheral vascular disease Pure hypercholesterolemia documented in this encounter Additional Health Concerns Assessment Noted Time PHQ-9 Depression Total Score: 12 019 10:11 AM EDT PHQ-2 Depression Total Score: 0 03/20/20 21 9:09 AM EST documented as of this encounter Care Teams Finish Inspector Relationship Specialty Start Date End Date Yissel Byrne MD [address] [place] [address], [address] [place] [address] [email or web address] [email or web address] - General Family Medicine 08/22/22 07/28/23 Yissel Byrne MD [address] [place] [address], [address] [place] [address] [email or web address] PCP - General Family Medicine 07/29/23 Christopher Tobar MD [address] [place] [address], [address] [place] [address] [email or web address] Insurance Assigned Provider Internal Medicine 01/24/19 [facility] Primary Care Physician 05/07/22 documented as of this encounter Additional Source Comments The information contained in this document represents components of the legal health record. It is not the complete legal health record.[facility]
--- OUTSIDE RECORDS SUMMARY | 2025-03-09 20:05 | XMS_ITS | Encounter Summary ---
Author Organization [facility] Address [address] [place] [address] Phone Care Team Providers Care Motor Boss Name Role Phone Christopher Tobar MD Unavailable [phone] Yissel Byrne MD Primary Care Provider + Yissel Byrne MD Primary Care Provider + Encounter Details Date Type Department Care Team (Late st Contact Info) Description 08/29/2022 Procedure Pass [facility], [facility] [address] [place] [address] Social History Tobacco Use Types Packs/Day Years [...] 08/22/2025 8:00 AM EDT Appointment [facility] [address] 3rd [place] [address] Mak Mei, DO 22 [facility] [address] [place] [address] 02/20/2026 10:15 AM EST Office Visit [facility] [address]rd Floor, [address] [place] [address] Mak Mei, DO 22 [facility] [address] [place] [address] [email or web address] documented as of this encounter Visit Diagnoses Not on filedocumented in this encounter Additional Health Concerns Assessment Noted Time PHQ-9 Depression Total Score: 12 019 10:11 AM EDT PHQ-2 Depression Total Score: 0 03/20/20 21 9:09 AM EST documented as of this encounter Care Teams Motor Boss Relationship Specialty Start Date End Date Yissel Byrne MD [address] [place] [address], [address] [place] [address] [email or web address] PCP - General Family Medicine 08/22/22 07/28/23 Yissel Byrne MD [address] [place] [address], [address] [place] [address] [email or web address] PCP - General Family Medicine 07/29/23 Christopher Tobar MD [address] [place] [address], [address] [place] [address] [email or web address] Insurance Assigned Provider Internal Medicine 01/24/19 [facility] Primary Care Physician 05/07/22 documented as of this encounter Additional Source Comments The information contained in this document represents components of the legal health record. It is not the complete legal health record.[facility]
--- OUTSIDE RECORDS SUMMARY | 2025-03-09 20:05 | XMS_ITS | Encounter Summary ---
Author Organization [facility] Address [address] [place] [address] Phone Care Team Providers Care Audiovisual Aids Technician Name Role Phone Christopher Tobar MD Unavailable [phone] Yissel Byrne MD Primary Care Provider + Yissel Byrne MD Primary Care Provider + Encounter Details Date Type Department Care Team (Late st Contact Info) Description 12/01/2022 Ancillary Orders [facility], [address] [address] Yissel Byrne MD [address] [place] [phone] [email or web address] Abnormal finding on mammography Social History Tobacco Use Types Packs/Day Years [...] 08/22/2025 8:00 AM EDT Appointment [facility] [address] 3rd [place] [address] Mak Mei, DO [address] [place] [address] [place] [address] 02/20/2026 10:15 AM EST Office Visit [facility] [address] [facility], [address] [place] [address] Mak Mei DO [address] [place] [address] [place] [address] documented as of this encounter Results * BI MAMMOGRAM DIAGNOSTIC WITH TOMOSYNTHESIS WITH CAD (RIGHT) (12/09/2022 12:37 PM EDT) Anatomical Region Laterality Modality Breast Right, Breast Bilateral Right M ammography 12/09/2022 12:4 2 PM EDT Impressions 12/09/2022 12:49 PM EDT Nonaggressive, likely benign appearance to right breast calcifications. Follow- up mammography to include magnification views CC and 90 degree mediolateral projections recommended in 6 months. BI-RADS: BI-RADS CATEGORY: 3 - Probably benign finding. Short interval follow up suggested. RIGHT RECOMMENDATION DUE DATE: 6 Months Recommendation: Right short interval follow-up Narrative 12/09/2022 12:49 PM EDT History: Abnormal screening mammography. Grouped right breast microcalcifications. STUDY: Unilateral right breast diagnostic mammography with tomosynthesis and CAD TECHNIQUE: Right breast discretion digital diagnostic mammography is obtained and read in conjunction with computer-aided detection. Tomosynthesis as well as 2-D C view imaging were obtained. Spot magnification views CC and 90 degree mediolateral projections. COMPARISON: Comparison made with multiple prior, most recent 11/21/2022, and most remote 04/04/2014. DENSITY: The breast tissue is heterogeneously dense, which could obscure a lesion on mammography. FINDINGS: Microcalcifications are round to oval and loosely grouped. Mild interval increase in calcifications over series of mammograms available. No associated mass or architectural distortion. Procedure Note Sunil Lynch MD - 12/09/2022 History: Abnormal screening mammography. Grouped right breastmicrocalcifications. STUDY: Unilateral right breast diagnostic mammography with tomosynthesisand CAD TECHNIQUE: Right breast discretion digital diagnostic mammography isobtained and read in conjunction with computer-aided detection.Tomosynthesis as well as 2-D C view imaging were obtained. Spotmagnification views CC and 90 degree mediolateral projections. COMPARISON: Comparison made with multiple prior, most recent 11/21/2022,and most remote 04/04/2014. DENSITY: The breast tissue is heterogeneously dense, which could obscurea lesion on mammography. FINDINGS: Microcalcifications are round to oval and loosely grouped. Mildinterval increase in calcifications over series of mammograms available.No associated mass or architectural distortion. IMPRESSION: Nonaggressive, likely benign appearance to right breast calcifications.Follow-up mammography to include magnification views CC and 90 degreemediolateral projections recommended in 6 months. BI-RADS: BI-RADS CATEGORY: 3 - Probably benign finding. Short intervalfollow up suggested. RIGHT RECOMMENDATION DUE DATE: 6 Months Recommendation: Right short interval follow-up us Yissel Byrne MD IMG MG EXAMS Final Re sult documented in this encounter Visit Diagnoses Diagnosis Abnormal finding on mammography Abnormal finding on mammography documented in this encounter Additional Health Concerns Assessment Noted Time PHQ-9 Depression Total Score: 12 019 10:11 AM EDT PHQ-2 Depression Total Score: 0 03/20/20 21 9:09 AM EST documented as of this encounter Care Teams Audiovisual Aids Technician Relationship Specialty Start Date End Date Yissel Byrne MD [address] [place] [address], [address] [place] [address] [email or web address] PCP - General Family Medicine 08/22/22 07/28/23 Yissel Byrne MD [address] [place] [address], [address] [place] [address] [email or web address] PCP - General Family Medicine 07/29/23 Christopher Tobar MD [address] [place] [address], [address] [place] [address] [email or web address] Insurance Assigned Provider Internal Medicine 01/24/19 [facility] Primary Care Physician 05/07/22 documented as of this encounter Additional Source Comments The information contained in this document represents components of the legal health record. It is not the complete legal health record.[facility]
--- OUTSIDE RECORDS SUMMARY | 2025-03-09 20:05 | XMS_ITS | Encounter Summary ---
Author Organization [facility] Address [address] [place] [address] Care Team Providers Care Chief Solution Architect Name Role Phone Monica Sr APRN Primary Care Provider [phone] Encounter Details Date Type Department Care Team (Late st Contact Info) Description 10/18/2018 Scanned Document [facility] [address] [place] [id number] Katie Roa, DO [address] [place] [address] Social History Tobacco Use Types Packs/Day Years [...] on file Sexual Orientation Not on file documented as of this encounter Plan of Treatment Not on file documented as of this encounter Visit Diagnoses Not on filedocumented in this encounter Care Teams Chief Solution Architect Relationship Specialty Start Date End Date Monica Sr APRN PCP - General 11/21/16 documented as of this encounter
--- OUTSIDE RECORDS SUMMARY | 2025-03-09 20:05 | XMS_ITS | Encounter Summary ---
Author Organization [facility] Address [address] [place] [address] [place] [address] Phone Care Team Providers Care Educational Diagnostician Name Role Phone Christopher Tobar MD Unavailable [phone] Yissel Byrne MD Primary Care Provider + Encounter Details Date Type Department Care Team (Late st Contact Info) Description 04/28/2024 Ancillary Orders [facility], [address] [address] Yissel Byrne MD [address] [place] [address] [phone] [email or web address] Abnormal mammogram (Primary Dx) Social History Tobacco Use Types [...] with a working camera? Not on file Intimate Partner Violence Answer Date R ecorded Are you denied basic needs s uch as food, clothing, or medical care? No 07/28/2023 In the past 12 months have y ou been in a relationship with a person who hurts, threatens, or tries to control you? No 07/28/2023 Are you denied basic needs s uch as food, clothing, or medical care? No 07/28/2023 In the past 12 months have y ou been in a relationship with a person who hurts, threatens, or tries to control you? No 07/28/2023 Comments No Sex and Gender Information Value [...] 08/22/2025 8:00 AM EDT Appointment [facility] [address] [place] [address] Mak Mei [address] [address] 02/20/2026 10:15 AM EST Office Visit [facility] [address] [place] [address], [address] [place] [address] Mka Mei [address] [address] documented as of this encounter Results * BI US BREAST LIMITED (RIGHT) (06/02/2024 9:51 AM EST) Anatomical Region Laterality Modality Breast Right, Breast Bilateral Right U ltrasound 06/02/2024 10:0 1 AM EST Impressions 06/02/2024 10:03 AM EST Probably benign findings on the right. Follow-up imaging is recommended with right diagnostic mammogram and ultrasound in 6 months. The calcifications in the upper outer quadrant will be evaluated at this time. BI-RADS 3 PROBABLY BENIGN Short interval follow-up suggested Results and recommendations were communicated to the patient at time of examination. Narrative 06/02/2024 10:03 AM EST BI MAMMOGRAM DIAGNOSTIC WITH TOMOSYNTHESIS WITH CAD (RIGHT), BI US BREAST LIMITED (RIGHT) Additional patient information: Architectural distortion on recent incomplete diagnostic mammogram for follow up of right calcifications. The patient was unable to complete evaluation at the time of bilateral diagnostic examination (April 2024). COMPARISON: Comparison is made with relevant prior imaging. Breast composition: The breast tissue is heterogeneously dense which may obscure small masses. FINDINGS: Right Mammogram: The asymmetry with suspected distortion in the 9:00 position of the right breast seen on standard views is less conspicuous with additional imaging and is without underlying mass, architectural distortion, suspicious calcifications or other concerning findings. Right Ultrasound: Targeted ultrasound was performed in the area of mammographic concern. No sonographic abnormality is seen. us Yissel Byrne MD IMG US BREAST Final Re sult * BI MAMMOGRAM DIAGNOSTIC WITH TOMOSYNTHESIS WITH CAD (RIGHT) (06/02/2024 9:02 AM EST) Anatomical Region Laterality Modality Breast Right, Breast Bilateral Right M ammography 06/02/2024 10:0 1 AM EST Impressions 06/02/2024 10:03 AM EST Probably benign findings on the right. Follow-up imaging is recommended with right diagnostic mammogram and ultrasound in 6 months. The calcifications in the upper outer quadrant will be evaluated at this time. BI-RADS 3 PROBABLY BENIGN Short interval follow-up suggested Results and recommendations were communicated to the patient at time of examination. Narrative 06/02/2024 10:03 AM EST BI MAMMOGRAM DIAGNOSTIC WITH TOMOSYNTHESIS WITH CAD (RIGHT), BI US BREAST LIMITED (RIGHT) Additional patient information: Architectural distortion on recent incomplete diagnostic mammogram for follow up of right calcifications. The patient was unable to complete evaluation at the time of bilateral diagnostic examination (April 2024). COMPARISON: Comparison is made with relevant prior imaging. Breast composition: The breast tissue is heterogeneously dense which may obscure small masses. FINDINGS: Right Mammogram: The asymmetry with suspected distortion in the 9:00 position of the right breast seen on standard views is less conspicuous with additional imaging and is without underlying mass, architectural distortion, suspicious calcifications or other concerning findings. Right Ultrasound: Targeted ultrasound was performed in the area of mammographic concern. No sonographic abnormality is seen. Procedure Note Dorina Harper MD - 06/02/2024 BI MAMMOGRAM DIAGNOSTIC WITH TOMOSYNTHESIS WITH CAD (RIGHT), BI US BREASTLIMITED (RIGHT) Additional patient information: Architectural distortion on recentincomplete diagnostic mammogram for follow up of right calcifications.The patient was unable to complete evaluation at the time of bilateraldiagnostic examination (April 2024). COMPARISON: Comparison is made with relevant prior imaging. Breast composition: The breast tissue is heterogeneously dense which mayobscure small masses. FINDINGS: Right Mammogram: The asymmetry with suspected distortion in the 9:00 position of the rightbreast seen on standard views is less conspicuous with additional imagingand is without underlying mass, architectural distortion, suspiciouscalcifications or other concerning findings. Right Ultrasound: Targeted ultrasound was performed in the area ofmammographic concern. No sonographic abnormality is seen. IMPRESSION: Probably benign findings on the right. Follow-up imaging is recommendedwith right diagnostic mammogram and ultrasound in 6 months. Thecalcifications in the upper outer quadrant will be evaluated at thistime. BI-RADS 3 PROBABLY BENIGN Short interval follow-up suggested Results and recommendations were communicated to the patient at time ofexamination. us Yissel Byrne MD IMG MG EXAMS Final Re sult documented in this encounter Visit Diagnoses Diagnosis Abnormal mammogram- Primary Abnormal mammogram, unspecified Abnormal mammogram Abnormal mammogram, unspecified Abnormal mammogram Abnormal mammogram, unspecified documented in this encounter Additional Health Concerns Assessment Noted Time PHQ-9 Depression Total Score: 12 019 10:11 AM EDT PHQ-2 Depression Total Score: 0 03/20/20 21 9:09 AM EST documented as of this encounter Care Teams Educational Diagnostician Relationship Specialty Start Date End Date Yissel Byrne MD [address] [place] [address], [address] [place] [address] [email or web address] PCP - General Family Medicine 07/29/23 Christopher Tobar MD [address] [place] [address], [address] [place] [address] [email or web address] Insurance Assigned Provider Internal Medicine 01/24/19 [facility] Primary Care Physician 05/07/22 documented as of this encounter Additional Source Comments The information contained in this document represents components of the legal health record. It is not the complete legal health record.[facility]
--- OUTSIDE RECORDS SUMMARY | 2025-03-09 20:05 | XMS_ITS | Encounter Summary ---
Author Organization [facility] Address [address] [place] [address] [place] [address] Phone Care Team Providers Care Business Account Leader Name Role Phone Christopher Tobar MD Unavailable [phone] Yissel Byrne MD Primary Care Provider + Yissel Byrne MD Primary Care Provider + Encounter Details Date Type Department Care Team (Late st Contact Info) Description 07/28/2023 Procedure Pass [facility] [address] [place] [address] Social History Tobacco Use Types Packs/Day Years [...] 08/22/2025 8:00 AM EDT Appointment [facility] [address] 3rd [place] [address] Mak Mei [address] [address] 02/20/2026 10:15 AM EST Office Visit [facility] [address] [place] [address] 3rd [facility], [address] [place] [address] Mak Mei [address] [address] [email or web address] documented as of this encounter Visit Diagnoses Not on filedocumented in this encounter Additional Health Concerns Assessment Noted Time PHQ-9 Depression Total Score: 12 019 10:11 AM EDT PHQ-2 Depression Total Score: 0 03/20/20 21 9:09 AM EST documented as of this encounter Care Teams Business Account Leader Relationship Specialty Start Date End Date Yissel Byrne MD [address] [facility], [address] [place] [address] [email or web address] PCP - General Family Medicine 08/22/22 07/28/23 Yissel Byrne MD [address] [place] [address], [address] [place] [address] [email or web address] PCP - General Family Medicine 07/29/23 Christopher Tobar MD [address] [place] [address], [address] [place] [address] [email or web address] Insurance Assigned Provider Internal Medicine 01/24/19 [facility] Primary Care Physician 05/07/22 documented as of this encounter Additional Source Comments The information contained in this document represents components of the legal health record. It is not the complete legal health record.[facility]
--- OUTSIDE RECORDS SUMMARY | 2025-03-09 20:06 | XMS_ITS | Encounter Summary ---
Author Organization [facility] Address [address] [facility] [address] [place] [address] Phone Care Team Providers Care Patient Monitor Name Role Phone Christopher Tobar MD Unavailable [phone] Yissel Byrne MD Primary Care Provider + Encounter Details Date Type Department Care Team (Late st Contact Info) Description 06/30/2024 Procedure Pass [facility], [address] [address] Social History Tobacco Use Types Packs/Day Years [...] 08/22/2025 8:00 AM EDT Appointment [facility] [address] 3rd [place] [address] Mak Mei [address] [place] [address] 02/20/2026 10:15 AM EST Office Visit [facility] [address] [place] [address] 3rd [facility], [address] [place] [address] Mak Mei [address] [place] [address] [email or web address] documented as of this encounter Visit Diagnoses Not on filedocumented in this encounter Additional Health Concerns Assessment Noted Time PHQ-9 Depression Total Score: 12 019 10:11 AM EDT PHQ-2 Depression Total Score: 0 03/20/20 21 9:09 AM EST documented as of this encounter Care Teams Patient Monitor Relationship Specialty Start Date End Date Yissel Byrne MD [address] [place] [address], [address] [place] [address] [email or web address] PCP - General Family Medicine 07/29/23 Christopher Tobar MD [address] [place] [address], [address] [place] [address] [email or web address] Insurance Assigned Provider Internal Medicine 01/24/19 [facility] Primary Care Physician 05/07/22 documented as of this encounter Additional Source Comments The information contained in this document represents components of the legal health record. It is not the complete legal health record.[facility]
--- OUTSIDE RECORDS SUMMARY | 2025-03-09 20:06 | XMS_ITS | Encounter Summary ---
Author Organization [facility] Address [address] [facility] [address] [place] [address] Phone Care Team Providers Care Street Sweeper Name Role Phone Christopher Tobar MD Unavailable [phone] Yissel Byrne MD Primary Care Provider + Encounter Details Date Type Department Care Team (Late st Contact Info) Description 04/28/2024 Procedure Pass [facility], [address] [address] Social History Tobacco Use Types Packs/Day Years [...] 08/22/2025 8:00 AM EDT Appointment [facility] [address] 3rd [place] [address] Mak Mei [address] [place] [address] 02/20/2026 10:15 AM EST Office Visit [facility] [address] [place] [address] 3rd [facility], [address] [place] [address] Mak Mei [address] [place] [address] [email or web address] documented as of this encounter Visit Diagnoses Not on filedocumented in this encounter Additional Health Concerns Assessment Noted Time PHQ-9 Depression Total Score: 12 019 10:11 AM EDT PHQ-2 Depression Total Score: 0 03/20/20 21 9:09 AM EST documented as of this encounter Care Teams Street Sweeper Relationship Specialty Start Date End Date Yissel Byrne MD [address] [place] [address], [address] [place] [address] [email or web address] PCP - General Family Medicine 07/29/23 Christopher Tobar MD [address] [place] [address], [address] [place] [address] [email or web address] Insurance Assigned Provider Internal Medicine 01/24/19 [facility] Primary Care Physician 05/07/22 documented as of this encounter Additional Source Comments The information contained in this document represents components of the legal health record. It is not the complete legal health record.[facility]
--- OUTSIDE RECORDS SUMMARY | 2025-03-09 20:06 | XMS_ITS | Encounter Summary ---
Author Organization [facility] Address [address] [place], [place] [phone] Phone Care Team Providers Care Mounter Sousaphones Name Role Phone Christopher Tobar MD Unavailable [phone] Sandra MuroW Unavailable [email or web address] Morenita Camp Primary Care Provide r Morenita Camp Primary Care Provide r Salome Le RN Unavailable [email or web address] Wayne Fischer MD Unavailable [phone] Shawanda Ramey MD Primary Care Provid er Yissel Byrne MD Primary Care Provider + Yissel Byrne MD Primary Care Provider + Encounter Details Date Type Department Care Team (Late st Contact Info) Description 11/17/2019 Procedure Pass [facility], Ct Scan - [address] [address] Social History Tobacco Use Types Packs/Day Years [...] 08/22/2025 8:00 AM EDT Appointment [facility] [place] [address]rd [place] [address] Mak Mei, DO [address] [facility] [address] [place] [address] 02/20/2026 10:15 AM EST Office Visit [facility] [address] 3rd [facility], [address] [place] [address] Mak Mei, DO [address] [place] [address] documented as of this encounter Visit Diagnoses Not on filedocumented in this encounter Additional Health Concerns Infection Onset Date Last Indicated Resolved Time CoV-Risk 02/08/2020 02/08/2020 02/22/2020 1:24 AM EST Assessment Noted Time PHQ-9 Depression Total Score: 12 019 10:11 AM EDT PHQ-2 Depression Total Score: 3 02/19/20 19 3:48 PM EST documented as of this encounter Care Teams Mounter Sousaphones Relationship Specialty Start Date End Date Morenita Camp PA [address] [place] [address] [email or web address] PCP - General 03/16/19 04/17/20 Morenita Camp PA [address] [place] [address] [email or web address] PCP - General 04/18/20 09/15/21 Shawanda Ramey MD [address] [place] [address] [address] [place] [address] [email or web address] PCP - General Family Medicine 09/16/21 05/15/22 Yissel Byrne MD [address] [place] [address] [email or web address] PCP - General Family Medicine 08/22/22 07/28/23 Yissel Byrne MD [address] [place] [address] [email or web address] PCP - General Family Medicine 07/29/23 Christopher Tobar MD [address] [place] [address], [address] [place] [address] [email or web address] Insurance Assigned Provider Internal Medicine 01/24/19 Sandra Muro LCSW [address] [place] [address], [address] [place] [address] [email or web address] PHCM Contour Sander 01/26/19 11/27/20 Salome Le, RN [address] [place] [address] [email or web address] PHCM [employer] Shop Estimator 11/28/20 02/12/22 Wayne Fischer MD [address] [place] [address], [address] [place] [address] Insurance Assigned Provider 07/13/21 01/11/22 [facility] Primary Care Physician 05/07/22 documented as of this encounter Additional Source Comments The information contained in this document represents components of the legal health record. It is not the complete legal health record.[facility]
--- OUTSIDE RECORDS SUMMARY | 2025-03-09 20:06 | XMS_ITS | Encounter Summary ---
Author Organization [facility] Address [address] [facility] [address] [place] [address] Phone Care Team Providers Care Business Development Officer Name Role Phone Christopher Tobar MD Unavailable [phone] Yissel Byrne MD Primary Care Provider + Encounter Details Date Type Department Care Team (Late st Contact Info) Description 02/23/2024 Procedure Pass [facility], [facility] [address] [place] [address] Social History Tobacco Use Types Packs/Day Years [...] 08/22/2025 8:00 AM EDT Appointment [facility] [address] 3rd [place] [address] Mak Mei [address] [place] [address] 02/20/2026 10:15 AM EST Office Visit [facility] [address] [place] [address] 3rd [facility], [address] [place] [address] Mak Mei [address] [place] [address] [email or web address] documented as of this encounter Visit Diagnoses Not on filedocumented in this encounter Additional Health Concerns Assessment Noted Time PHQ-9 Depression Total Score: 12 019 10:11 AM EDT PHQ-2 Depression Total Score: 0 03/20/20 21 9:09 AM EST documented as of this encounter Care Teams Business Development Officer Relationship Specialty Start Date End Date Yissel Byrne MD [address] [place] [address], [address] [place] [address] [email or web address] PCP - General Family Medicine 07/29/23 Christopher Tobar MD [address] [place] [address], [address] [place] [address] [email or web address] Insurance Assigned Provider Internal Medicine 01/24/19 [facility] Primary Care Physician 05/07/22 documented as of this encounter Additional Source Comments The information contained in this document represents components of the legal health record. It is not the complete legal health record.[facility]
--- OUTSIDE RECORDS SUMMARY | 2025-03-09 20:07 | XMS_ITS | Clinical Summary ---
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 [address] [facility] [address] [place] [address] [email or web address] 02/20/2026 10:15 AM EST Office Visit [facility] [address], [address] [place] [address] Mak Mei, DO [address] [place] [address] [place] [id number] Health Maintenance Due Date Last Done Comments COLOGUARD 2015 FIT TEST 2015 FOBT 2015 SIGMOIDOSCOPY 2015 VIRTUAL COLONOSCOPY 2015 RSV VACCINE (1 - Risk 50-74 years 1-dose series) 2020 ZOSTER VACCINES (1 of 2) 2020 PNEUMOCOCCAL VACCINES (50+ years) (2 of 2 - PCV) 03/15/2021 03/15/2020 DEPRESSION SCREENING 03/20/2022 03/20/2021, 01/27/20 19 INFLUENZA VACCINE (#1) 2024 01/26/2019 COVID-19 VACCINE ( season) 2024 03/23/2021, 07/25/2020, 07/04/2020 BLOOD PRESSURE 02/17/2025 08/17/2024 COLONOSCOPY 06/01/2025 06/01/2020 COLORECTAL CANCER SCREENING 06/01/2025 SMOKING Hx and SMOKELESS TOBACCO SCREENING 08/17/2025 08/17/2024 MAMMOGRAM 04/27/2026 04/27/2024, 11/04, 04/24/2021, Additional history exists SCREENING FOR DIABETES 02/02/2027 02/03/2024, 2023 Adult Td,Tdap Booster 01/16/2031 01/16/2021 HEPATITIS C SCREENING Completed 04/08/2021, 022 HIV ONE-TIME SCREENING (18-65 YEARS) Completed 04/08/2021 HEPATITIS A VACCINES Aged Out No long er eligible based on patient's age to complete this topic HIB VACCINES Aged Out No longer eligi ble based on patient's age to complete this topic MENINGOCOCCAL VACCINES (ACWY) Aged Out No longer eligible based on patient's age to complete this topic MENINGOCOCCAL VACCINES (B) Aged Out N o longer eligible based on patient's age to complete this topic Medical Devices Not on file Procedures Procedure Name Priority Date/Time Associated Diagnosis Comments BI MAMMOGRAM DIAGNOSTIC WITH TOMOSYNTHESIS WITH CAD (BILATERAL) Routine 04/27/2024 12:53 PM EST Encounter for follow-up examination after completed treatment for conditions other than malignant neoplasm HEPATITIS C ANTIBODY, QUALITATIVE Routine 04/08/2021 9:35 AM EST Medicare annual wellness visit, subsequent Need for hepatitis C screening test ENDOSCOPY, COLON 06/01/2020 8:41 AM EST from Last 3 Months or Most Recently Relevant to Health Maintenance Results * BI MAMMOGRAM DIAGNOSTIC WITH TOMOSYNTHESIS WITH CAD (BILATERAL) (04/27/2024 12:53 PM EST) Anatomical Region Laterality Modality Breast Left, Breast Right, Breast Bilateral Bila teral Mammography 04/27/2024 1:23 PM EST Impressions 04/27/2024 1:48 PM EST As the patient could not remain for additional imaging due to an emergency the radiology department will attempt to recall the patient for additional mammographic imaging and possible ultrasound of the right breast at no extra cost. BI-RADS 0-S INCOMPLETE Needs additional imaging evaluation Results and recommendations were communicated to the patient at time of examination. Narrative 04/27/2024 1:48 PM EST BI MAMMOGRAM DIAGNOSTIC WITH TOMOSYNTHESIS WITH CAD (BILATERAL) Additional patient information: COMPARISON: Comparison is made with relevant prior imaging. Breast composition: The breast tissue is heterogeneously dense which may obscure small masses. FINDINGS: After initial images were obtained the patient had an emergency and related to leave the hospital so no additional images could be obtained at this time. Right Mammogram: There is a questionable new area of architectural distortion in the outer mid-posterior aspect. Regionally distributed microcalcifications in the upper outer aspect of the breast do not appear to have increased in number. The majority are punctate There are a few microcalcifications with. Slightly indeterminant morphology. No other significant change. Left Mammogram: No suspicious mass or architectural distortion. A few diffusely distended punctate microcalcifications are stable. Procedure Note Ramsey Byrne MD - 04/27/2024 BI MAMMOGRAM DIAGNOSTIC WITH TOMOSYNTHESIS WITH CAD (BILATERAL) Additional patient information: COMPARISON: Comparison is made with relevant prior imaging. Breast composition: The breast tissue is heterogeneously dense which mayobscure small masses. FINDINGS: After initial images were obtained the patient had an emergency andrelated to leave the hospital so no additional images could be obtained atthis time. Right Mammogram: There is a questionable new area of architectural distortion in the outermid-posterior aspect. Regionally distributed microcalcifications in theupper outer aspect of the breast do not appear to have increased innumber. The majority are punctate There are a few microcalcificationswith. Slightly indeterminant morphology. No other significant change. Left Mammogram: No suspicious mass or architectural distortion. A few diffusely distendedpunctate microcalcifications are stable. IMPRESSION: As the patient could not remain for additional imaging due to an emergencythe radiology department will attempt to recall the patient for additionalmammographic imaging and possible ultrasound of the right breast at noextra cost. BI-RADS 0-S INCOMPLETE Needs additional imaging evaluation Results and recommendations were communicated to the patient at time ofexamination. us Yissel Byrne MD IMG MG EXAMS Final Re sult * Hepatitis C antibody, qualitative (04/08/2021 9:35 AM EST) HCV NON-REACTIV E NON-REACTI VE [facility] Blood 04/08/2021 9:35 AM EST 04/08/2021 9:40 AM EST Morenita Camp PA LAB BLOOD BKR ORDERAB LES Final Result [address] [address] * ENDOSCOPY, COLON (06/01/2020 8:41 AM EST) Narrative Transcriptions Clive Downs MD - 06/01/2020 8:41 AM EST Patient Name: Renee Mitchell Attending MD:: CLIVE DOWNS MD Procedure Date: 06/01/2020 8:41 AM Date of : 1970 Age: 50 Admit Type: Outpatient Gender: Female Room: [facility] Referring MD: Morenita Camp Exam Type: Colonoscopy Indications: Screening in patient at increased risk: Familyhistory of 1st-degree relative with colorectal cancer before age 60 years Medications: Monitored Anesthesia Care Procedure: Informed consent was obtained from the patient after discussion of the indications, limitations, alternatives, benefits, and risks of the procedure. Risks specifically discussed include but are not limited to medication reactions, missed lesions, bleeding, perforation, or the need for emergentsurgery. Throughout the procedure, the patient's bloodpressure, pulse, end-tidal CO2, and oxygen saturations were monitored continuously. The Olympus adult colonoscope CFQ 180AL #3 was introduced through the anus and advanced to thececum, identified by the appendiceal orifice, IC valve and transillumination. The colonoscopy was performed without difficulty. The patient tolerated theprocedure well. The quality of the bowel preparation wasgood. Complications: No immediate complications. Findings: The perianal and digital rectal examinations were normal. A 5 mm polyp was found in the cecum. The polyp was semi-pedunculated. The polyp was removed with ajumbo cold forceps. Resection and retrieval were complete. Verification of patient identification for thespecimen was done by the physician and nurse using thepatient's name and date. Estimated blood loss wasminimal. A 5 mm polyp was found in the rectum. The polyp was semi-pedunculated. The polyp was removed with ajumbo cold forceps. Resection and retrieval were complete. Verification of patient identification for thespecimen was done by the physician and nurse using thepatient's name and date. Estimated blood loss wasminimal. A few small-mouthed diverticula were found in the sigmoid colon. The exam was otherwise without abnormality on direct and retroflexion views. Impression: - One 5 mm polyp in the cecum, removed with a jumbo cold forceps. Resected and retrieved. - One 5 mm polyp in the rectum, removed with a jumbo cold forceps. Resected and retrieved. - Diverticulosis in the sigmoid colon. - The examination was otherwise normal on direct and retroflexion views. Recommendation: - Discharge patient to home. - Resume previous diet. - Continue present medications. - Await pathology results. - Repeat colonoscopy in 5 years for surveillancebased on pathology results. - Return to my office in 5 years. CLIVE DOWNS MD 06/01/2020 9:26:06 AM This report has been signed electronically. Number of Addenda: 0 Note Initiated On: 06/01/2020 8:41 AM Procedure Code(s): --- Professional --- 28749, Colonoscopy, flexible; with biopsy, single or multiple --- Technical --- 56445, Colonoscopy, flexible; with biopsy, single or multiple Diagnosis Code(s): --- Professional --- Z80.0, Family history of malignant neoplasm of digestive organs D12.0, Benign neoplasm of cecum K62.1, Rectal polyp K57.30, Diverticulosis of large intestine without perforation or abscess without bleeding --- Technical --- Z80.0, Family history of malignant neoplasm of digestive organs D12.0, Benign neoplasm of cecum K62.1, Rectal polyp K57.30, Diverticulosis of large intestine without perforation or abscess without bleeding CPT copyright 2018 [employer]. All rights reserved. The codes documented in this report are preliminary and upon certified coder reviewmay be revised to meet current compliance requirements. Procedure Date: 06/01/2020 8:41:26 AM [address] [place] [address] Morenita DAVIS GI PROCEDURE ORDERABL ES Final Result from Last 3 Months or Most Recently Relevant to Health Maintenance Insurance ([place]) [address] [address] MEDICARE PART A & B [facility] MEDICARE PART A & B [place] & [place] PART [place] & B [employer] MEDICARE PART A & [place] & B Member Subscriber Plan / Payer (Ef fective 2001-Present) Name:Renee Mitchell Member ID:[id number] Relation to Subscriber:Self Name:Renee Mitchell Subscriber ID:[id number] Payer ID:[id number] Group ID:Not on file Type:Medicare Address: [employer] [address] [place] [phone] [facility] MEDICARE PART A & [facility] B [facility] Advance Directives For more information, please contact: [phone] (9AM - 5PM [facility], Thursday-Thursday) * Full Code (Latest Code Status on File) Date Activated Date Inactivated Comments 02/09/2020 3:30 AM 06/01/2020 7:52 AM Question Answer Comments Code Status Confirmed With: Patient Care Teams Support Services Rep Relationship Specialty Start Date End Date Yissel Byrne MD [address] [place] [address], [address] [place] [address] [email or web address] PCP - General Family Medicine 07/29/23 Christopher Tobar MD [address] [place] [address], [address] [place] [address] [email or web address] Insurance Assigned Provider Internal Medicine 01/24/19 [facility] Primary Care Physician 05/07/22 Additional Source Comments The information contained in this document represents components of the legal health record. It is not the complete legal health record.[facility]
--- OUTSIDE RECORDS SUMMARY | 2025-03-09 20:07 | XMS_ITS | Data Portability ---
Author Organization [facility], Allergy Address [address] [place] [address] [address] [place] [address] Care Team Providers Care Auto Travel Counselor Name Role Phone BRETT LARKIN Primary Care Provider [phone] Assessment No assessment recorded. Plan of Treatment Reminders Order Date Submit Date Provider Last Modified By Organization Details Last Modified Time Details Appointments None record ed. Lab None record ed. Referral None record ed. Procedures None record ed. Surgeries None record ed. Imaging None record ed. Medication Orders None record ed. Patient TargetsNo targets recorded. Patient InstructionsNo instructions recorded. Reason for Referral None Reported. Problems Name Problem SNOMED Code Status Onset Date Resolution Date Notes Provider Name and Address Organization Details Recorded Time Anterior epistaxis 255448437 Active 024 CARO Iniguez MD [address] [place] [address], [phone] [place] [address] [facility] 4 11:37:51 Deviated nasal septum 335624550 Active 024 CARO Iniguez MD [address] [place] [address], [phone] [place] [address] [facility] 4 11:43:09 Problem Notes None recorded. Medical Equipment None Reported. Medications Name Sig Start Date Stop Date Status Note LastModified by Organization Details LastModified Time quetiapine 300 mg tablet TAKE 1 TABLET BY MOUTH EVERY DAY active Not Available Not Available No t Available ondansetron HCl 4 mg tablet TAKE 1 TABLET BY MOUTH EVERY 8 HOURS FOR 5 DAYS NEEDED FOR NAUSEA OR VOMITING active Not Available Not Available No t Available amoxicillin 500 mg tablet TAKE 1 TABLET BY MOUTH THREE TIMES DAILY UNTIL GONE active Not Available Not Available No t Available gabapentin 300 mg capsule TAKE 1 CAPSULE BY MOUTH THREE TIMES DAILY active Not Available Not Available No t Available ibuprofen 600 mg tablet TAKE 1 TABLET BY MOUTH THREE TIMES DAILY WITH FOOD NEEDED active Not Available Not Available No t Available Ventolin HFA 90 mcg/actuation aerosol inhaler INHALE 2 PUFFS BY MOUTH EVERY 4 HOURS NEEDED active Not Available Not Available No t Available rosuvastatin 40 mg tablet TAKE 1 TABLET BY MOUTH EVERY DAY active Not Available Not Available No t Available Advair HFA 115 mcg-21 mcg/actuation aerosol inhaler INHALE 2 PUFFS BY MOUTH TWICE DAILY active Not Available Not Available No t Available Symbicort 160 mcg-4.5 mcg/actuation HFA aerosol inhaler INHALE 2 PUFFS BY MOUTH TWICE DAILY active Not Available Not Available No t Available Combivent Respimat 20 mcg-100 mcg/actuation solution for inhalation INHALE 1 PUFF BY MOUTH FOUR TIMES DAILY NEEDED active Not Available Not Available No t Available Vitals Date Recorded Body height Body mass index (BMI) Body weight Provider Name and Address Organization Details Last Updated DateTime 03/21/2024 157.48 cm 23.8 kg/m2 67649.01 g Gil Casey [place] - [facility] 03/21/2024 11:34:27 Social History None recorded. Functional Status None recorded. Mental Status None recorded. Family History Nothing Reported. Medical History No medical history recorded. Gynecological HistoryNo gynecological history recorded. Obstetrics History GPAL:G 0 P 0 0 0 0 Past Encounters Encounter ID Performer Location Encounter Start Date Encounter Closed Date Diagnosis/Indication Diagnosis SNOMED-CT Code Diagnosis ICD10 Code Diagnosis IMO Codes Diagnosis Note [id number] CARO STEELE MD [facility] [address] [address] 03/21/2024 11:14:37 03/21/2024 11:43:43 Anterior epistaxis 125595348 R04.0 No active bleeding was seen on exam. Nasal cautery was deferred. We discussed the importance of nasal moisture preventing nosebleeds . Specifical ly we discussed using a saline spray daily, humidifier , and using Vaseline with a finger at night applied to the septum. If there is an active bleed, I recommende d using Afrin and demonstrat ed applying pressure to the soft part of the nose. The patient understand s to not use Afrin if he does not have an active bleed. If there is continued bleeding I asked the patient to call and we will consider nasal cautery at follow up. Deviated nasal septum 12 [id number] J34.2 recommend observatio n Health Concerns Section Related Observation LastModified by Organization Detai ls LastModified Time None Recorded Concern Status LastModified by Organization Details LastModified Time None Recorded Advance Directives Directive None Recorded Payers Insurance Date Sequence Insurance Name Policy Number Policy Carvalho Covered Member ID Carvalho Member ID Guarantor Name 03/21/2024 2 [place] [facility] Renee Peluyera [id number] Renee Peluyera 03/21/2024 1 [place] [employer] Renee Peluyera [id number] Renee Peluyera Notes Date Note Type Note Provider Name and Address Organization Details Recorded Time 03/21/2024 text/html ROS as noted in the HPI She has a history of left epistaxis dating back to 08/2023. Hasn't had one since December. She is not moisturizing her nose. No blood thinners. CARO STEELE MD [address] [place] [address], [place], [address], [place] - [facility] 03/21/2024 11:43:27 OBGyn Episode No OBEpisode recorded.
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
--- OUTSIDE RECORDS SUMMARY | 2025-03-09 20:07 | XMS_ITS | Encounter Summary ---
Author Organization [facility] Address [address] [place] [phone] Phone Care Team Providers Care Assembler Bicycle Name Role Phone Christopher Tobar MD Unavailable [phone] Yissel Byrne MD Primary Care Provider + Encounter Details Date Type Department Care Team (Late st Contact Info) Description 06/30/2024 Procedure Pass [facility], [facility] [address] [place] [address] Social History Tobacco Use Types Packs/Day Years [...] 08/22/2025 8:00 AM EDT Appointment [facility] [address] [place] [address] Mak Mei [address] [place] [phone] 02/20/2026 10:15 AM EST Office Visit [facility] [address] [place] [address] 3rd [facility], [address] [place] [address] Mak Mei [address] [place] [address] [email or web address] documented as of this encounter Visit Diagnoses Not on filedocumented in this encounter Additional Health Concerns Assessment Noted Time PHQ-9 Depression Total Score: 12 019 10:11 AM EDT PHQ-2 Depression Total Score: 0 03/20/20 21 9:09 AM EST documented as of this encounter Care Teams Assembler Bicycle Relationship Specialty Start Date End Date Yissel Byrne MD [address] [place] [address], [address] [place] [address] [email or web address] PCP - General Family Medicine 07/29/23 Christopher Tobar MD [address] [place] [address], [address] [place] [address] [email or web address] Insurance Assigned Provider Internal Medicine 01/24/[address] [facility] Primary Care Physician 05/07/22 documented as of this encounter Additional Source Comments The information contained in this document represents components of the legal health record. It is not the complete legal health record.[facility]
--- OUTSIDE RECORDS SUMMARY | 2025-03-09 20:07 | XMS_ITS | Encounter Summary ---
Author Organization [facility] Address [address] [place] [address] Phone Care Team Providers Care Wood Heel Finisher Name Role Phone Christopher Tobar MD Unavailable [phone] Sandra Muro IMPORT SPECIALIST Unavailable [email or web address] Martinez Primary Care Provide r Salome Le RN Unavailable [email or web address] Wayne Fischer MD Unavailable [phone] Shawanda Ramey MD Primary Care Provid er Yissel Byrne MD Primary Care Provider + Yissel Byrne MD Primary Care Provider + Encounter Details Date Type Department Care Team (Late st Contact Info) Description 06/01/2020 Procedure Pass [facility] Admitting Dept Virtual Department [address] [place] [address] Social History Tobacco Use Types Packs/Day Years [...] 08/22/2025 8:00 AM EDT Appointment [facility] [address] [place] [address] Mak Mei, DO 22 [facility] [address] [place] [address] [email or web address] 02/20/2026 10:15 AM EST Office Visit [facility] [address], [address] [place] [address] Mak Mei, DO 22 [facility] [address] [place] [address] [email or web address] documented as of this encounter Visit Diagnoses Not on filedocumented in this encounter Additional Health Concerns Assessment Noted Time PHQ-9 Depression Total Score: 12 019 10:11 AM EDT PHQ-2 Depression Total Score: 0 03/15/20 20 10:11 AM EST documented as of this encounter Care Teams Wood Heel Finisher Relationship Specialty Start Date End Date Morenita aCmp PA [address] [place] [address] [email or web address] PCP - General 04/18/20 09/15/21 Shawanda Ramey MD [address] [address] [email or web address] PCP - General Family Medicine 09/16/21 05/15/22 Yissel Byrne MD [address] [address] [email or web address] PCP - General Family Medicine 08/22/22 07/28/23 Yissel Byrne MD [address] [place] [address] [place] [address] [email or web address] PCP - General Family Medicine 07/29/23 Christopher Tobar MD [address] [place] [address], [address] [place] [address] [email or web address] Insurance Assigned Provider Internal Medicine 01/24/19 Sandra Muro [address], [address] [place] [address] PHCM Auditor Medical Claims 01/26/19 11/27/20 Salome Le, RN [address] [place] [phone] [email or web address] PHCM Top Waddy 11/28/20 02/12/22 Wayne Fischer MD [address] [place] [address], [address] [place] [address] [email or web address] Insurance Assigned Provider 07/13/21 01/11/22 [facility] Primary Care Physician 05/07/22 documented as of this encounter Additional Source Comments The information contained in this document represents components of the legal health record. It is not the complete legal health record.[facility]
== END 2025-03-09 14:35 | disposition home or self-care (01) ==
LOC: HO.PMC 14:25
PROVIDERS: PCP Physician Assistant; Visit Provider Anesthesiology
DX: M51.369 Other intervertebral disc degeneration, lumbar region without mention of lumbar back pain or lower extremity pain (principal); M47.816 Spondylosis without myelopathy or radiculopathy, lumbar region; G89.4 Chronic pain syndrome; M16.0 Bilateral primary osteoarthritis of hip; M46.1 Sacroiliitis, not elsewhere classified; M51.16 Intervertebral disc disorders with radiculopathy, lumbar region; M54.16 Radiculopathy, lumbar region
CPT/HCPCS: 99213

== ENCOUNTER → 2025-03-09 14:25 | Outpatient (BNVA) | payer MEDICARE, MEDICAID, SELFPAY | PROVIDERS: PCP Physician Assistant; Visit Provider Anesthesiology | DX: G89.4 Chronic pain syndrome (principal); M16.0 Bilateral primary osteoarthritis of hip; M51.16 Intervertebral disc disorders with radiculopathy, lumbar region; M46.1 Sacroiliitis, not elsewhere classified; M51.360 Other intervertebral disc degeneration, lumbar region with discogenic back pain only | CPT/HCPCS: 99212 ==